=== PATIENT | female | born 1955 | race Caucasian/White ===

== ENCOUNTER → 2016-09-25 | Outpatient (CLI) | payer OTHER ==
[~2016-09-25] MED LIST: ALPR-411 PO; ASCA500 PO; CALC-393 PO; CALC600T9 PO; CALCTAB5 PO; CRAN1CAP15 PO; FLAX1CAP11 PO; FLAXOIL4 PO; LECI1200 PO; LISI-461 PO; LISI-789 PO; LSN5 PO; MARSHMALLOW ROOT PO; MILK140C PO; NRV/5 PO; PRED50TA PO; RANI300T2 PO; REDTAB PO; SPIR50TA PO; SUCR1TAB29 PO; VNTHFA/IN INH; ZNT/150 PO
== END | disposition home or self-care (01) ==
LOC: C.LABSPEC 11:11
PROVIDERS: ATTEND Family Medicine
DX: N39.0 Urinary tract infection, site not specified (principal)

== ENCOUNTER → 2016-10-15 | Outpatient (CLI) | payer OTHER | END | disposition home or self-care (01) | LOC: C.LABSPEC 11:24 | PROVIDERS: ATTEND Family Medicine | DX: N39.0 Urinary tract infection, site not specified (principal) ==

== ENCOUNTER 2016-10-19 10:53 | Emergency (ER) | payer OTHER ==
[~2016-10-19] VITALS: Ht 167.6 cm; Wt 113.6 kg
[~2016-10-19 10:53] MED LIST changes: -ASCA500 PO; -CALC-393 PO; -CALC600T9 PO; -CRAN1CAP15 PO; -FLAX1CAP11 PO; -LISI-461 PO; -LISI-789 PO; -LSN5 PO; -MARSHMALLOW ROOT PO; -NRV/5 PO; -PRED50TA PO; -RANI300T2 PO; -SPIR50TA PO; -VNTHFA/IN INH
[2016-10-19 11:04] VITALS: TEMP 37; Ht 167.6 cm; Wt 113.6 kg
[2016-10-19 11:10] VITALS: O2SAT 96
--- NOTE | 2016-10-19 11:30 | DIAGNOSTIC IMAGING REPORT ---
CHEST ONE VIEW PORTABLE CLINICAL HISTORY: Near Syncope COMPARISON STUDY: Chest radiograph February 15, 2016. FINDINGS: Lung volumes are normal. No consolidation is identified. There is no pneumothorax or pleural effusion. Scoliosis of the thoracolumbar spine is incidentally noted. Cardiomediastinal silhouette is stable. IMPRESSION: No acute cardiopulmonary findings. Electronically signed by: David Damon M.D. 10/19/2016 11:29 AM Dictated Date/Time: 10/19/2016 11:28 AM
[2016-10-19 11:48] LABS: MANUAL MICROSCOPIC REQUIRED? NO; URINE APPEARANCE CLEAR (CLEAR); URINE BILIRUBIN NEG (NEG); URINE COLOR YELLOW; URINE NITRITE NEG (NEG); URINE PH 6.5 (4.5-7.5); URINE SPECIFIC GRAVITY <= 1.005 (1.000-1.030); UROBILINOGEN NEG (NEG)
[2016-10-19 11:52] LABS: REVIEW REQ? NO
[2016-10-19 12:06] LABS: BASO % 2.9 %; BASO ABS # 0.17 K/uL (0-0.2); COMPLETE YES; EOS % 4.9 %; IG% 0.2 %; MEAN CELL VOLUME 85.8 fL (80-100); MEAN CORPUSCULAR HEMOGLOBIN 27.9 pg (25-34); MEAN CORPUSCULAR HGB CONC 32.5 g/dl (32-36); MEAN PLATELET VOLUME 11.2 fL (7.4-10.4); MONO % 6.6 %; NEUT % 46.4 %; PLATELET COUNT 227 K/uL (130-400); RED BLOOD COUNT 4.66 M/uL (4.2-5.4); WHITE BLOOD COUNT 5.89 K/uL (4.8-10.8)
[2016-10-19] MEDS ORDERED: CALC-393 PO (12:07)
[2016-10-19] MEDS ORDERED: NRV/5 PO (12:07)
[2016-10-19 12:15] LABS: ZZUR CULT IF INDIC CLEAN CATCH NO
--- NOTE | 2016-10-19 12:16 | EMERGENCY ROOM VISIT NOTE ---
History Report prepared by Eric: Yomaira Kendall Under the Supervision of: Dr. Terry Huitron M.D. First contact with patient: 12:04 Chief Complaint: DIZZY Stated Complaint: DIZZY Nursing Triage Summary: Patient reports getting dizzy around 10:10 this morning at [employer], dizziness persisted with lying sitting and standing. Patient reports being dizzy at this time. Patient states "This happened last thursday, thursday, thursday, and was seen by Dr Martínez and he changed my medications" Pateint reports "when I got dizzy i felt like I had to have a BM and thats directly related as I had loose stools thursday and thursday and then was constipated until this morning" History of Present Illness The patient is a 61 year old female who presents to the Emergency Room with complaints of multiple episodes of syncope occurring one week prior to arrival. The patient states that these episodes occur about 90 minutes after she has a bowel movement. During these episodes her blood pressure spikes and she becomes hypertension and becomes dizzy. The patient notes she recently was on Bactrim and had a reaction to it where she developed hives over her body and legions in her mouth. The patient also notes that the past few days she had very loose stool and is now experiencing constipation. Dr. Doss has done a scope on her with no abnormal findings. She denies a having a stress test done. Source of History: patient Onset: one week [employer] Position: other (global) Quality: other (syncope) Timing: other (episodes) Note: Patient is experiencing dizziness, hypertension and constipation. Review of Systems See HPI for pertinent positives & negatives. A total of 10 systems reviewed and were otherwise negative. Past Medical & Surgical Medical Problems: (1) Anxiety (2) Esophageal Reflux (3) Esophageal Stricture (4) Foreign Body Esophagus (5) Hypertension Nos (6) Panic disorder (7) Urin Tract Infection Nos (8) Vasovagal attack Family History Patient reports no known family medical history. Social History Smoking Status: Former Smoker Alcohol Use: none Drug Use: none Marital Status: Occupation Status: employed Current/Historical Medications Scheduled Amlodipine Besylate (Amlodipine Besylate), 5 MG PO DAILY Calcium Carbonate (Calcium), 600 MG PO BID Flaxseed (Linseed) (Flax Seed Oil), 1 TBS PO QAM Lecithin (Lecithin), 1,200 MG PO QAM Lisinopril (Lisinopril), 10 MG PO DAILY Milk Thistle (Silybum Marianum (Milk Thistle), 1 CAP PO BID Ranitidine Hcl (Zantac), 300 MG PO BID Red [place] Extract (Promensil), 500 MG PO QAM Sucralfate (Carafate), 1 GM PO ACHS Scheduled PRN Alprazolam (Xanax), 0.5 MG PO BID PRN for Anxiety Allergies Coded Allergies: Erythromycin (Unverified Allergy, Mild, UNKNOWN, 02/15/16) Macrolides (Unverified Allergy, Mild, 02/15/16) Sulfa Drugs (Unverified Allergy, Mild, 02/15/16) Loracarbef (Unverified Allergy, Unknown, UNKNOWN, 02/15/16) Sulfamethoxazole w/Trimethoprim (Verified Allergy, Unknown, fever,joint pain,rash,hives, 10/19/16) Physical Exam Vital Signs Date Time Temp Pulse Resp B/P Pulse Ox O2 Delivery O2 Flow Rate FiO2 10/19/16 15:20 70 18 188/88 97 10/19/16 14:56 70 18 188/88 97 Room Air 10/19/16 13:55 74 17 171/75 96 Room Air 10/19/16 12:26 71 180/84 96 Room Air 75 179/83 77 196/99 10/19/16 11:10 96 Room Air 10/19/16 11:07 74 10/19/16 11:04 37.0 71 18 185/100 97 Room Air Physical Exam GENERAL: Patient is a healthy-appearing well-nourished HEAD: Normocephalic atraumatic EYES: Ocular movements intact pupils equal and react to light OROPHARYNX mucous membranes are moist no exudates present no erythema or edema present NECK: Supple no nuchal rigidity CHEST: Good equal expansion LUNGS: Clear and equal to auscultation CARDIAC: Normal S1 and S2 ABDOMEN: Soft nontender no guarding BACK: No CVA tenderness EXTREMITIES: No pain upon palpation normal muscle strength in all groups no clubbing cyanosis or edema NEURO: Patient is following commands is answering questions appropriately. Alert and oriented x3 Cranial Nerves 2-12 grossly intact Medical Decision & Procedures ER Provider Diagnostic Interpretation: X-ray results as stated below per my interpretation and radiologist interpretation. Other radiology results as stated below per my review and radiologist interpretation: CHEST ONE VIEW PORTABLE CLINICAL HISTORY: Near Syncope COMPARISON STUDY: Chest radiograph February 15, 2016. FINDINGS: Lung volumes are normal. No consolidation is identified. There is no pneumothorax or pleural effusion. Scoliosis of the thoracolumbar spine is incidentally noted. Cardiomediastinal silhouette is stable. IMPRESSION: No acute cardiopulmonary findings. Electronically signed by: David Damon M.D. 10/19/2016 11:29 AM Dictated Date/Time: 10/19/2016 11:[address] OF THE HEAD WITHOUT CONTRAST CLINICAL HISTORY: Hypotension. Multiple syncopal episodes. COMPARISON STUDY: Head CT February 15, 2016. CT DOSE: 537.48 mGy.cm TECHNIQUE: Helical axial images of the head were obtained without IV contrast. Automated exposure control was utilized for the study. FINDINGS: No acute intracranial hemorrhage, midline shift or mass effect is present. Ventricular system is normal. Basilar cisterns are patent. There are no extra-axial collections. There are no findings to suggest acute dural sinus thrombosis or acute territorial infarct. There is mild mucosal thickening of the ethmoid sinuses. Mastoid air cells are clear. There are no calvarial fractures. IMPRESSION: No acute intracranial findings. Electronically signed by: David Damon M.D. 10/19/2016 1:41 PM Dictated Date/Time: 10/19/2016 1:39 PM Laboratory Results 10/19/16 11:08 Red Blood Count 4.66, Mean Corpuscular Volume 85.8, Mean Corpuscular Hemoglobin 27.9, Mean Corpuscular Hemoglobin Concent 32.5, Mean Platelet Volume 11.2, Neutrophils (%) (Auto) 46.4, Lymphocytes (%) (Auto) 39.0, Monocytes (%) (Auto) 6.6, Eosinophils (%) (Auto) 4.9, Basophils (%) (Auto) 2.9, Neutrophils # (Auto) 2.73, Lymphocytes # (Auto) 2.30, Monocytes # (Auto) 0.39, Eosinophils # (Auto) 0.29, Basophils # (Auto) 0.17 10/19/16 11:08 Test 10/19/16 11:00 10/19/16 11:08 10/19/16 11:26 Urine Color YELLOW Urine Appearance CLEAR (CLEAR) Urine pH 6.5 (4.5-7.5) Urine Specific [place] <= 1.005 (1.000-1.030) Urine Protein NEG (NEG) Urine Glucose (UA) NEG (NEG) Urine Ketones NEG (NEG) Urine Occult Blood NEG (NEG) Urine Nitrite NEG (NEG) Urine Bilirubin NEG (NEG) Urine Urobilinogen NEG (NEG) Urine Leukocyte Esterase NEG (NEG) White Blood Count 5.89 K/uL (4.8-10.8) Red Blood Count 4.66 M/uL (4.2-5.4) Hemoglobin 13.0 g/dL (12.0-16.0) Hematocrit 40.0 % (37-47) Mean Corpuscular Volume 85.8 fL (80-100) Mean Corpuscular Hemoglobin 27.9 pg (25-34) Mean Corpuscular Hemoglobin Concent 32.5 g/dl (32-36) Platelet Count 227 K/uL (130-400) Mean Platelet Volume 11.2 fL (7.4-10.4) Neutrophils (%) (Auto) 46.4 % Lymphocytes (%) (Auto) 39.0 % Monocytes (%) (Auto) 6.6 % Eosinophils (%) (Auto) 4.9 % Basophils (%) (Auto) 2.9 % Neutrophils # (Auto) 2.73 K/uL (1.4-6.5) Lymphocytes # (Auto) 2.30 K/uL (1.2-3.4) Monocytes # (Auto) 0.39 K/uL (0.11-0.59) Eosinophils # (Auto) 0.29 K/uL (0-0.5) Basophils # (Auto) 0.17 K/uL (0-0.2) RDW Standard Deviation 44.7 fL (36.4-46.3) RDW Coefficient of Variation 14.3 % (11.5-14.5) Immature Granulocyte % (Auto) 0.2 % Immature Granulocyte # (Auto) 0.01 K/uL (0.00-0.02) Anion Gap 10.0 mmol/L (3-11) Est Creatinine Clear Calc Drug Dose 86.6 ml/min Estimated GFR () 84.5 Estimated GFR (Non- 72.9 BUN/Creatinine Ratio 10.7 (10-20) Calcium Level 9.1 mg/dl (8.5-10.1) Total Bilirubin 0.3 mg/dl (0.2-1) Aspartate Amino Transf (AST/SGOT) 19 U/L (15-37) Alanine Aminotransferase (ALT/SGPT) 43 U/L (12-78) Alkaline Phosphatase 87 U/L (45-117) Total Creatine Kinase 94 U/L (26-192) Creatine Kinase MB 1.8 ng/ml (0.5-3.6) Creatine Kinase MB Ratio 1.9 (0-3.0) Total Protein 7.9 gm/dl (6.4-8.2) Albumin 3.4 gm/dl (3.4-5.0) Globulin 4.5 gm/dl (2.5-4.0) Albumin/Globulin Ratio 0.8 (0.9-2) Thyroid Stimulating Hormone (TSH) 1.150 uIu/ml (0.300-4.500) Bedside Troponin I 0.010 ng/ml (0-0.045) Labs reviewed by ED physician. Medications Administered Medications (Trade) Dose Ordered Sig/Haja Route Start Time Stop Time Status Last Admin Dose Admin Lisinopril (Zestril Tab) 10 mg NOW STAT PO 10/19/16 12:54 10/19/16 12:56 DC 10/19/16 13:11 10 MG ECG Indication: other (dizziness) Rate (beats per minute): 71 Rhythm: normal sinus Findings: no acute ischemic change, no ectopy ED Course 1210: Past medical records reviewed. The patient was evaluated in room C9. A complete history and physical examination was performed. 1249: I reevaluated the patient. 1254: Zestril Tab 10 mg PO. 1435: Upon reexamination the patient is hemodynamically stable. I discussed results and treatment plan with the patient. She verbalizes agreement and understanding. The patient is ready for discharge. Medical Decision The patient is a 61 year old female who presents to the ED with complaints of dizziness. Differential diagnosis: Etiologies such as benign hypertension, hypertensive emergency, cardiovascular pathology, pheochromocytoma, electrolyte abnormality, renal disease, endorgan damage, as well as others were entertained. This is a 61-year-old female who presents emergency department complaining of spikes in her blood pressure causing her to pass out. The patient is also feeling dizzy at this point. Her blood pressure is elevated. Primary care physician recently changed her blood pressure medication. I believe be reasonable to place patient on lisinopril. Repeat examination revealed much improvement the patient's symptoms. I do believe the patient as well as to be discharged home with a trial medication of lisinopril. Patient was in agreement with the treatment plan. Impression Primary Impression: Hypertension Scribe Attestation The scribe's documentation has been prepared under my direction and personally reviewed by me in its entirety. I confirm that the note above accurately reflects all work, treatment, procedures, and medical decision making performed by me. Departure Information Dispostion Home / Self-Care Prescriptions Lisinopril (Lisinopril) 10 Mg Tab 10 MG PO DAILY for 10 Days, #10 TAB Prov: Terry Huitron MD 10/19/16 Referrals Linus Orona M.D. (PCP) Forms HOME CARE DOCUMENTATION FORM, IMPORTANT VISIT INFORMATION, School Instructions, Work Instructions Patient Instructions ED Hypertension Poss, My [facility] Additional Instructions You have been examined and treated today on an emergency basis only. This is not a substitute for, or an effort to provide, complete comprehensive medical care. It is impossible to recognize and treat all injuries or illnesses in a single emergency department visit. It is therefore important that you follow up closely with Dr Orona. Call as soon as possible for an appointment. Thank you for your time and consideration. I look forward to speaking with you again soon. Please don't hesitate to call us if you have any questions. Problem Qualifiers Primary Impression: Hypertension Hypertension type: essential hypertension Qualified Codes: I10 - Essential ( primary) hypertension
[2016-10-19 12:22] LABS: BUN/CREATININE RATIO 10.7 (10-20); CALCIUM 9.1 mg/dl (8.5-10.1); CREATININE 0.85 mg/dl (0.60-1.20); POTASSIUM 3.9 mmol/L (3.5-5.1)
[2016-10-19 12:32] LABS: ALB/GLOB RATIO 0.8 (0.9-2); CKMB/CK RATIO 1.9 (0-3.0); THYROID STIMULATING HORMONE 1.15 uIu/ml (0.300-4.500)
[2016-10-19] MEDS ORDERED: LISINOPRIL 10 MG TAB PO STA (12:54)
--- NOTE | 2016-10-19 13:42 | DIAGNOSTIC IMAGING REPORT ---
CT OF THE HEAD WITHOUT CONTRAST CLINICAL HISTORY: Hypotension. Multiple syncopal episodes. COMPARISON STUDY: Head CT February 15, 2016. CT DOSE: 537.48 mGy.cm TECHNIQUE: Helical axial images of the head were obtained without IV contrast. Automated exposure control was utilized for the study. FINDINGS: No acute intracranial hemorrhage, midline shift or mass effect is present. Ventricular system is normal. Basilar cisterns are patent. There are no extra-axial collections. There are no findings to suggest acute dural sinus thrombosis or acute territorial infarct. There is mild mucosal thickening of the ethmoid sinuses. Mastoid air cells are clear. There are no calvarial fractures. IMPRESSION: No acute intracranial findings. Electronically signed by: David Damon M.D. 10/19/2016 1:41 PM Dictated Date/Time: 10/19/2016 1:39 PM
[2016-10-19] MEDS ORDERED: LISI-461 PO (14:34)
[2016-10-19 15:20] VITALS: BP 188/88; PULSE 70; O2SAT 97
[2016-12-04] MEDS ORDERED: LISI-789 PO (14:02)
[2016-12-04] MEDS ORDERED: MARSHMALLOW ROOT PO (14:02)
[2016-12-04] MEDS ORDERED: RANI300T2 PO (14:02)
[2016-12-04] MEDS ORDERED: SPIR50TA PO (14:02)
== END 2016-10-19 15:21 | disposition home or self-care (01) ==
LOC: EDBD 10:53 → C.EDC 10:55
DX: I10 Essential (primary) hypertension (principal); F41.9 Anxiety disorder, unspecified; K21.9 Gastro-esophageal reflux disease without esophagitis; K22.2 Esophageal obstruction; Z87.891 Personal history of nicotine dependence; Z79.899 Other long term (current) drug therapy

== ENCOUNTER → 2016-12-03 | Outpatient (CLI) | payer OTHER ==
[~2016-12-03] MED LIST changes: +ASCA500 PO; +CALC-393 PO; +CALC600T9 PO; -CALCTAB5 PO; +CRAN1CAP15 PO; +FLAX1CAP11 PO; +LISI-461 PO; +LISI-789 PO; +LSN5 PO; +MARSHMALLOW ROOT PO; +NRV/5 PO; +PRED50TA PO; +RANI300T2 PO; +SPIR50TA PO; +VNTHFA/IN INH
[2016-12-06 01:43] LABS: CRYPTOSPORIDIUM AG TC 37213 NOT DETECTED (NOT DETECTED); O&P GIARDIA AG NOT DETECTED (NOT DETECTED)
== END | disposition home or self-care (01) ==
LOC: C.LAB 15:58
PROVIDERS: ATTEND Family Medicine
DX: R19.7 Diarrhea, unspecified (principal)

== ENCOUNTER → 2016-12-16 | Outpatient (CLI) | payer OTHER ==
[~2016-12-16] MED LIST changes: -FLAXOIL4 PO; -LISI-461 PO; -NRV/5 PO; -ZNT/150 PO
--- NOTE | 2016-12-16 12:34 | DIAGNOSTIC IMAGING REPORT ---
ABDOMINAL ULTRASOUND COMPLETE HISTORY: Pain. Nausea. 05/11/2015. COMPARISON: 05/11/2015 FINDINGS: Pancreas: Limited visibility due to overlying bowel content Liver: Fatty infiltration. Several small cysts. Gallbladder: No gallbladder wall thickening. No gallstones. CBD: 4 mm Kidneys: 2.3 cm left renal cyst. Otherwise negative kidneys. Spleen: Normal in size. Aorta: Normal in caliber. IVC: Patent. IMPRESSION: Several small left renal as well as hepatic cysts. Mild fatty infiltration of liver. Otherwise negative study Electronically signed by: Beltran Bender M.D. 12/16/2016 12:31 PM Dictated Date/Time: 12/16/2016 12:27 PM
== END | disposition home or self-care (01) ==
LOC: C.ULTR 11:32
PROVIDERS: ATTEND Family Medicine
DX: R10.9 Unspecified abdominal pain (principal); R11.2 Nausea with vomiting, unspecified; N28.1 Cyst of kidney, acquired; K76.89 Other specified diseases of liver

== ENCOUNTER → 2016-12-17 | Day surgery (SDC) | payer OTHER ==
[2016-12-04 14:06] VITALS: BMI 39.0
[~2016-12-17] VITALS: Ht 167.6 cm; Wt 109.1 kg
[~2016-12-17] MED LIST changes: +LIDOCAINE HCL 2% 2 ML VIAL (20MG/ML) ONE; +PROPOFOL IV EMULSION 10 MG/ML 20 ML VIAL IV ONE; +SODIUM CHLORIDE 0.9% 500ML 500 ML IV ONE
[2016-12-17 10:50] VITALS: Ht 167.6 cm; Wt 109.1 kg
--- NOTE | 2016-12-17 10:59 | Endo History and Physical ---
History & Physical Date of Service: Dec 17, 2016. Chief Complaint: vomiting, Hx Schatzki ring Referring Physician: Dr. Orona History of Present Illness 61 yo CF who presents for EGD secondary to Schatzki's ring and vomiting. Past Medical History Arthritis, Gastrointestinal Disorder, Anxiety, Reflux, Cancer, Syncopal Episodes Past Surgical History Hx Cardiac Surgery: No Hx Internal Defibrillator: No Hx Pacemaker: No Hx Abdominal Surgery: No Hx Post-Op Nausea and Vomiting: No Hx Cancer Surgery: Yes (CONE BX FOR CERVICAL CA) Hx Thoracic Surgery: No Hx Orthopedic: No Hx Urinary Tract Surgery: No Family History Colon CA Social History Smoking Status: Former Smoker Hx Substance Use: No Hx Alcohol Use: No Allergies Coded Allergies: Sulfa Antibiotics (Verified Allergy, Unknown, MULTIPLE STOMACH PROBLEMS, MOUTH LESIONS, 12/04/16) Current Medications Reported Home Medications Medications Dose Route/Sig Max Daily Dose Days Date Category Zantac (Ranitidine HCl) 300 Mg Tab 1-2 Tab PO BID PRN 12/04/16 Reported [Marshmallow Root] 1 Dose PO DIRECTED 12/04/16 Reported Aldactazide 25MG/25MG (HCTZ/Spironolactone) 1 Tab Tab 1 Tab PO QAM 12/04/16 Reported Zestril (Lisinopril) 2.5 Mg Tab 1 Tab PO HS 12/04/16 Reported Calcium (Calcium Carbonate) 600 Mg Tab 600 Mg PO BID 10/19/16 Reported Milk Thistle (Milk Thistle (Silybum Marianum) Unknown Strength Cap 1 Cap PO BID 09/26/15 Reported Promensil ([place] Extract) 500 Mg Tab 500 Mg PO QAM 09/26/15 Reported Xanax (Alprazolam) 0.5 Mg Tab 0.5 Mg PO BID PRN 09/26/15 Reported Carafate (Sucralfate) 1 Gm Tab 1 Gm PO ACHS 09/26/15 Reported Lecithin 1,200 Mg Cap 1,200 Mg PO QAM 09/17/14 Reported Vital Signs Weight (Kilograms): 109.09 Height (Feet): 5 Height (Inches): 6 Date Time Temp Pulse Resp B/P Pulse Ox O2 Delivery O2 Flow Rate FiO2 12/17/16 10:56 36.9 70 20 151/79 95 Room Air Physical Exam General Appearance: WD/WN, no apparent distress Respiratory/Chest: Auscultation: breath sounds normal Cardiovascular: Heart Auscultation: RRR Abdomen: Bowel Sounds: normal Inspection & Palpation: soft, non-distended, no tenderness, guarding & rebound Assessment and Plan Assessment: 61 yo CF who presents for EGD secondary to Schatzki's ring and vomiting. Plan: Proceed with EGD.
--- NOTE | 2016-12-17 11:31 | Discharge Instructions ---
Endoscopy Patient Instructions Date / Procedure(s) Performed Dec 17, 2016. EGD Allergy Information Coded Allergies: Sulfa Antibiotics (Verified Allergy, Unknown, MULTIPLE STOMACH PROBLEMS, MOUTH LESIONS, 12/04/16) Discharge Date / Findings Dec 17, 2016. Schatzki's Ring s/p dilation Hiatal hernia Medication Instructions OK to resume all medications today as prescribed Reported Home Medications Medications Dose Route/Sig Max Daily Dose Days Date Category Zantac (Ranitidine HCl) 300 Mg Tab 1-2 Tab PO BID PRN 12/04/16 Reported [Marshmallow Root] 1 Dose PO DIRECTED 12/04/16 Reported Aldactazide 25MG/25MG (HCTZ/Spironolactone) 1 Tab Tab 1 Tab PO QAM 12/04/16 Reported Zestril (Lisinopril) 2.5 Mg Tab 1 Tab PO HS 12/04/16 Reported Calcium (Calcium Carbonate) 600 Mg Tab 600 Mg PO BID 10/19/16 Reported Milk Thistle (Milk Thistle (Silybum Marianum) Unknown Strength Cap 1 Cap PO BID 09/26/15 Reported Promensil (Red [place] Extract) 500 Mg Tab 500 Mg PO QAM 09/26/15 Reported Xanax (Alprazolam) 0.5 Mg Tab 0.5 Mg PO BID PRN 09/26/15 Reported Carafate (Sucralfate) 1 Gm Tab 1 Gm PO ACHS 09/26/15 Reported Lecithin 1,200 Mg Cap 1,200 Mg PO QAM 09/17/14 Reported Provider Instructions Activity Restrictions - No exercising or heavy lifting for 24 hours. - Do not drink alcohol the day of the procedure. - Do not drive a car or operate machinery until the day after the procedure. - Do not make any important decisions or sign important papers in 24 hours after the procedure. Following Day: - Return to full activity which may include returning to work/school. Diet Start your diet with liquids and light foods (jello, soup, juice, toast). Then eat your usual diet if not nauseated. Treatment For Common After Affects For mild abdominal pain, bloating, or excessive gas: - Rest - Eat lightly - Lie on right side Follow-Up Information Follow-up with Dr. Orona as scheduled Anesthesia Information What You Should Know You have had a procedure that required some medicine to reduce anxiety and discomfort. This treatment is called moderate sedation. After receiving the treatment, you may be sleepy, but you will be able to breathe on your own. The effects of the treatment may last for several hours. Follow these instructions along with Activity/Diet recommendations noted above: * Do NOT do anything where dizziness or clumsiness would be dangerous. * Rest quietly at home today, then you can be up and about tomorrow. * Have a responsible person stay with you the rest of today. * You may have had an I.V. today. If so, you may take the dressing off later today. Recommendations Call your doctor if: * Trouble breathing * Continuous vomiting for more than 24 hours * Temperature above 101 degrees * Severe abdominal pain or bloating * Pain not relieved by pain medicine ordered * There is increased drainage or redness from any incision * A large amount of rectal bleeding greater than 2-3 tablespoons. (If you had a polyp/s removed or have hemorrhoids, a small amount of blood - from the rectum is to be expected.) * You have any unanswered questions or concerns. IN THE EVENT OF A SERIOUS EMERGENCY, GO TO THE NEAREST EMERGENCY ROOM Your discharge instructions were prepared by provider Mamadou Doss. Patient Instructions Signature Page Anabel Carver Patient (or Guardian) Signature/Date: I have read and understand the instructions given to me by my caregivers. Caregiver/RN/Doctor Signature/Date: The above-named patient and/or guardian has received patient instructions on this date. + Original Patient Signature Page (only) stays with chart. Please make copy for patient.
--- NOTE | 2016-12-17 11:35 | GI REPORT ---
Procedure Date: 12/17/2016 11:04 AM Procedure: Upper GI endoscopy Indications: Dysphagia Medicines: Monitored Anesthesia Care Complications: No immediate complications. Estimated Blood Loss: Estimated blood loss: none. Procedure: Pre-Anesthesia Assessment: - Prior to the procedure, a History and Physical was performed, and patient medications and allergies were reviewed. The patient's tolerance of previous anesthesia was also reviewed. The risks and benefits of the procedure and the sedation options and risks were discussed with the patient. All questions were answered, and informed consent was obtained. Prior Anticoagulants: The patient has taken no previous anticoagulant or antiplatelet agents. ASA Grade Assessment: II - A patient with mild systemic disease. After reviewing the risks and benefits, the patient was deemed in satisfactory condition to undergo the procedure. After obtaining informed consent, the endoscope was passed under direct vision. Throughout the procedure, the patient's blood pressure, pulse, and oxygen saturations were monitored continuously. The scope was introduced through the mouth, and advanced to the second part of duodenum. The upper GI endoscopy was accomplished without difficulty. The patient tolerated the procedure well. Findings: LA Grade C (one or more mucosal breaks continuous between tops of 2 or more mucosal folds, less than 75% circumference) esophagitis with no bleeding was found. A moderate Schatzki ring (acquired) was found at the gastroesophageal junction. A TTS dilator was passed through the scope. Dilation with an 18-19-20 mm balloon (to a maximum balloon size of 18 mm) dilator was performed. The dilation site was examined and showed moderate improvement in luminal narrowing. A medium-sized hiatus hernia was present. The examined duodenum was normal. Impression: - LA Grade C reflux esophagitis. - Moderate Schatzki ring. Dilated. - Medium-sized hiatus hernia. - Normal examined duodenum. - No specimens collected. Recommendation: - Resume previous diet. - Continue present medications. - Repeat the upper endoscopy PRN for retreatment. - Return to primary care physician as previously scheduled. Mamadou Doss DO 12/17/2016 11:35:02 AM This report has been signed electronically. Note Initiated On: 12/17/2016 11:04 AM I attest to the content of the Intraoperative Record and orders documented therein, exceptions below
[2016-12-17 11:51] VITALS: BP 156/77; PULSE 62; O2SAT 98
--- NOTE | 2016-12-17 14:46 | Anesthesiology Progress Note ---
Anesthesia Post Op Note Date & Time Dec 17, 2016 at 14:45 Vital Signs Pain Intensity: 0 Vital Signs Past 12 Hours Date Time Temp Pulse Resp B/P Pulse Ox O2 Delivery O2 Flow Rate FiO2 12/17/16 11:51 62 20 156/77 98 Room Air 12/17/16 11:39 56 20 116/64 99 Room Air 12/17/16 11:26 70 20 103/51 100 Room Air 12/17/16 10:56 36.9 70 20 151/79 95 Room Air Notes Mental Status: alert / awake / arousable, participated in evaluation Pt Amnestic to Procedure: Yes Nausea / Vomiting: adequately controlled Pain: adequately controlled Airway Patency, RR, SpO2: stable & adequate BP & HR: stable & adequate Hydration State: stable & adequate Anesthetic Complications: no major complications apparent
== END | disposition home or self-care (01) ==
LOC: C.GI 10:24
PROVIDERS: ATTEND Internal Medicine
DX: R13.10 Dysphagia, unspecified (principal); K22.2 Esophageal obstruction; K44.9 Diaphragmatic hernia without obstruction or gangrene; K21.0 Gastro-esophageal reflux disease with esophagitis; Z87.891 Personal history of nicotine dependence

== ENCOUNTER 2017-01-05 01:54 | Emergency (ER) | payer OTHER ==
[~2017-01-05] VITALS: Ht 167.6 cm; Wt 112.4 kg
[~2017-01-05 01:54] MED LIST changes: -ASCA500 PO; -CALC600T9 PO; -CRAN1CAP15 PO; -FLAX1CAP11 PO; -LIDOCAINE HCL 2% 2 ML VIAL (20MG/ML) ONE; -LSN5 PO; -PRED50TA PO; -PROPOFOL IV EMULSION 10 MG/ML 20 ML VIAL IV ONE; -SODIUM CHLORIDE 0.9% 500ML 500 ML IV ONE; -VNTHFA/IN INH
[2017-01-05 01:56] VITALS: Ht 167.6 cm; Wt 112.4 kg
[2017-01-05] MEDS ORDERED: ALBUT/IPRATROP 3MG/0.5MG NEB 3 ML VIAL INH ONE (02:15)
[2017-01-05] MEDS ORDERED: LSN5 PO (02:15)
[2017-01-05] MEDS ORDERED: SODIUM CHLORIDE 0.9% 1000ML 1,000 ML IV ONE (02:15)
[2017-01-05 02:17] VITALS: PULSE 80; O2SAT 97
[2017-01-05] MEDS ORDERED: CALC600T9 PO (02:18)
[2017-01-05] MEDS ORDERED: CRAN1CAP15 PO (02:22)
[2017-01-05] MEDS ORDERED: MILK140C PO (02:22)
[2017-01-05] MEDS ORDERED: ASCA500 PO (02:22)
[2017-01-05] MEDS ORDERED: FLAX1CAP11 PO (02:22)
[2017-01-05 02:46] LABS: BASO % 0.3 %; BASO ABS # 0.03 K/uL (0-0.2); COMPLETE YES; EOS % 4.3 %; HEMATOCRIT 37.4 % (37-47); IG% 0.2 %; LYMPH ABS # 2.25 K/uL (1.2-3.4); MEAN CELL VOLUME 87.2 fL (80-100); MEAN CORPUSCULAR HEMOGLOBIN 29.1 pg (25-34); MEAN CORPUSCULAR HGB CONC 33.4 g/dl (32-36); MEAN PLATELET VOLUME 10.7 fL (7.4-10.4); MONO % 6.6 %; NEUT % 65.6 %; PLATELET COUNT 227 K/uL (130-400); RED BLOOD COUNT 4.29 M/uL (4.2-5.4); WHITE BLOOD COUNT 9.79 K/uL (4.8-10.8)
[2017-01-05 03:06] LABS: POINT OF CARE PRO-BNP 114 pg/ml (0-900)
[2017-01-05 03:10] LABS: ALB/GLOB RATIO 0.8 (0.9-2); BUN/CREATININE RATIO 23.1 (10-20); CALCIUM 8.8 mg/dl (8.5-10.1); CREATININE 0.92 mg/dl (0.60-1.20); POTASSIUM 3.7 mmol/L (3.5-5.1); THYROID STIMULATING HORMONE 1.45 uIu/ml (0.300-4.500)
[2017-01-05] MEDS ORDERED: OPTIRAY 320 IV PRN (03:15)
[2017-01-05] MEDS ORDERED: VNTHFA/IN INH (04:32)
[2017-01-05] MEDS ORDERED: PRED50TA PO (04:32)
[2017-01-05 05:00] VITALS: BP 135/67; PULSE 94; O2SAT 94
--- NOTE | 2017-01-05 05:34 | EMERGENCY ROOM VISIT NOTE ---
History First contact with patient: :56 Chief Complaint: COUGH Stated Complaint: COUGH Nursing Triage Summary: pt arrived via ambulance. Pt stated she started coughing around 1999. At 2300 developed SOB. History of Present Illness The patient is a 61 year old female who presents to the Emergency Room with complaints of cough symptoms for the past 3 hours. Patient states that she was mowing her grass earlier today and EMS reports that she has several cats at home. The patient states that she developed a very mild cough about 6 hours ago , however 3 hours ago the cough caused her to feel like she might be short of breath. The cough is dry in nature. He does not have chest pain, neck pain, arm pain, or abdominal pain with this. She does take lisinopril, and reportedly has some element of coughing while on lisinopril. The patient has not had fever or chills. She is without additional symptoms. Review of Systems More than 10 systems were reviewed and otherwise negative with the exception of history of present illness. Past Medical/Surgical History Medical Problems: (1) Anxiety (2) Esophageal Reflux (3) Esophageal Stricture (4) Foreign Body Esophagus (5) Hypertension Nos (6) Panic disorder (7) Urin Tract Infection Nos (8) Vasovagal attack Family History Patient reports no known family medical history. No pertinent family history Social History Smoking Status: Never Smoker Alcohol Use: none Drug Use: none Marital Status: Occupation Status: employed Current/Historical Medications Scheduled Albuterol Hfa (Ventolin Hfa), 2 PUFFS INH QID Ascorbic Acid (Vitamin C), 500 MG PO TID Calcium Carbonate-Vitamin D (Calcium + D), 1 TAB PO BID Cranberry-Vitamin C-Vitamin E (Cranberry), 1 DOSE PO UD Flaxseed (Linseed) (Flax Seed Oil), 2,400 MG PO DAILY Hctz/Spironolactone 25MG/25MG (Aldactazide 25MG/25MG), 1 TAB PO QAM Lisinopril (Lisinopril), 5 MG PO DAILY Milk Thistle (Silybum Marianum (Milk Thistle), 1 CAP PO DAILY Prednisone (Prednisone), 50 MG PO DAILY Ranitidine (Zantac), 300 MG PO BID Sucralfate (Carafate), 1 GM PO ACHS Allergies Coded Allergies: Sulfa Antibiotics (Verified Allergy, Unknown, MULTIPLE STOMACH PROBLEMS, MOUTH LESIONS, 12/04/16) Physical Exam Vital Signs Date Time Temp Pulse Resp B/P Pulse Ox O2 Delivery O2 Flow Rate FiO2 01/05/17 05:00 94 18 135/67 94 01/05/17 04:50 94 18 135/67 94 Room Air 01/05/17 03:37 106 18 157/64 95 Room Air 01/05/17 02:17 80 14 97 Room Air 01/05/17 02:01 98 Room Air 01/05/17 01:56 36.8 76 20 164/86 98 Room Air Pain Rating (0-10): 0 Physical Exam VITALS: Vitals are noted on the nurse's note and reviewed by myself. Vital signs stable. GENERAL: Well-developed, well-nourished, white female, who is in no acute distress and resting comfortably. Patient is cooperative with the examination. HEAD: Normocephalic atraumatic. EARS: External ear normal. External auditory canals clear, tympanic membranes pearly scherer without erythema or effusion bilaterally. EYES: Pupils equal round and reactive to light and accommodation. Conjunctivae without injection, sclerae without icterus. Extraocular movements intact. NOSE: Patent, turbinates without inflammation or discharge. MOUTH: Mucous membranes moist. Tonsils are not enlarged. Pharynx without erythema, blood, or exudate. Uvula midline. Airway patent. NECK: Supple without nuchal rigidity. No lymphadenopathy. No thyromegaly. Cervical spine is nontender. HEART: Regular rate and rhythm without murmurs gallops or rubs. LUNGS: Mild wheezing without rhonchi or rales Medical Decision & Procedures ER Provider Diagnostic Interpretation: Preliminary Findings Only See Final Report For Complete Findings CTA CHEST: Main pulmonary artery is normal in caliber. There is no evidence of acute pulmonary embolism. There is no right heart strain. There is a thyroid goiter. There is mild ascending thoracic aortic aneurysm measuring 4 cm. There is mild cardiomegaly without pericardial effusion. There is a small hiatal hernia. There is no adenopathy by size criteria. There is no airspace consolidation, pleural effusion, or pneumothorax. There is mild centrilobular emphysema. Visualized upper abdomen demonstrates hepatic cysts. There is S-shaped thoracolumbar scoliosis without evidence of acute osseous abnormality. Laboratory Results 01/05/17 02:25 Red Blood Count 4.29, Mean Corpuscular Volume 87.2, Mean Corpuscular Hemoglobin 29.1, Mean Corpuscular Hemoglobin Concent 33.4, Mean Platelet Volume 10.7, Neutrophils (%) (Auto) 65.6, Lymphocytes (%) (Auto) 23.0, Monocytes (%) (Auto) 6.6, Eosinophils (%) (Auto) 4.3, Basophils (%) (Auto) 0.3, Neutrophils # (Auto) 6.42, Lymphocytes # (Auto) 2.25, Monocytes # (Auto) 0.65, Eosinophils # (Auto) 0.42, Basophils # (Auto) 0.03 01/05/17 02:25 Test 01/05/17 02:25 01/05/17 02:42 White Blood Count 9.79 K/uL (4.8-10.8) Red Blood Count 4.29 M/uL (4.2-5.4) Hemoglobin 12.5 g/dL (12.0-16.0) Hematocrit 37.4 % (37-47) Mean Corpuscular Volume 87.2 fL (80-100) Mean Corpuscular Hemoglobin 29.1 pg (25-34) Mean Corpuscular Hemoglobin Concent 33.4 g/dl (32-36) Platelet Count 227 K/uL (130-400) Mean Platelet Volume 10.7 fL (7.4-10.4) Neutrophils (%) (Auto) 65.6 % Lymphocytes (%) (Auto) 23.0 % Monocytes (%) (Auto) 6.6 % Eosinophils (%) (Auto) 4.3 % Basophils (%) (Auto) 0.3 % Neutrophils # (Auto) 6.42 K/uL (1.4-6.5) Lymphocytes # (Auto) 2.25 K/uL (1.2-3.4) Monocytes # (Auto) 0.65 K/uL (0.11-0.59) Eosinophils # (Auto) 0.42 K/uL (0-0.5) Basophils # (Auto) 0.03 K/uL (0-0.2) RDW Standard Deviation 44.7 fL (36.4-46.3) RDW Coefficient of Variation 14.2 % (11.5-14.5) Immature Granulocyte % (Auto) 0.2 % Immature Granulocyte # (Auto) 0.02 K/uL (0.00-0.02) Nucleated RBC Absolute Count (auto) 0.00 K/uL (0-0) Nucleated Red Blood Cells % 0.0 % D-Dimer 610 ug/L FEU (0-500) Anion Gap 7.0 mmol/L (3-11) Est Creatinine Clear Calc Drug Dose 79.6 ml/min Estimated GFR () 76.8 Estimated GFR (Non- 66.3 BUN/Creatinine Ratio 23.1 (10-20) Calcium Level 8.8 mg/dl (8.5-10.1) Total Bilirubin 0.3 mg/dl (0.2-1) Aspartate Amino Transf (AST/SGOT) 16 U/L (15-37) Alanine Aminotransferase (ALT/SGPT) 25 U/L (12-78) Alkaline Phosphatase 90 U/L (45-117) Troponin I 0.043 ng/ml (0-0.045) Total Protein 8.1 gm/dl (6.4-8.2) Albumin 3.5 gm/dl (3.4-5.0) Globulin 4.6 gm/dl (2.5-4.0) Albumin/Globulin Ratio 0.8 (0.9-2) Thyroid Stimulating Hormone (TSH) 1.450 uIu/ml (0.300-4.500) Chemistry Specimen Hemolysis Bedside D-Dimer > 450 ng/mlFEU (0-450) Bedside Troponin I 0.030 ng/ml (0-0.045) SF-Rfx-Q-Type Natriuretic Peptide 114 pg/ml (0-900) Medications Administered Medications (Trade) Dose Ordered Sig/Haja Route Start Time Stop Time Status Last Admin Dose Admin Sodium Chloride (Nss 1000ml) 1,000 ml @ 999 mls/hr Q1H1M ONCE IV 01/05/17 02:15 01/05/17 03:15 DC 01/05/17 02:15 999 MLS/HR Albuterol/ Ipratropium (Duoneb) 12 ml NOW ONCE INH 01/05/17 02:15 01/05/17 02:16 DC 01/05/17 02:17 12 ML ED Course Physical exam and history were performed. Nursing notes and EMR were reviewed. Patient appears to have a cough for the past several hours. She evidently mowed her lawn today and this started some of her symptoms. Her discomfort has worsened tonight. She will occasionally cough and have some shortness of breath. She arrives via ambulance. EKG was performed and was normal sinus rhythm at 71 beats per minutes without ischemia or ectopy. EKG is without significant change when compared to EKG of 10/19/2016. IV access was established and labs were obtained. Patient was hydrated with normal saline and given a one-hour DuoNeb treatment. I did offer the patient steroids, but she declined these as they tend to make her feel anxious. Patient's blood work is as above and was reviewed. She does not have a significantly elevated white blood cell count, gross anemia, bandemia, or significant electrolyte imbalance. Her troponin 1 is negative. D-dimer was elevated and CT scan was performed. CT scan does not show evidence of acute pulmonary embolism or pneumonia. There is an incidental 4 cm thoracic aortic aneurysm. This CT scan today was the first of her chest that she has had, and this finding does not appear to be contributing to her visit today. The patient did have improvement of her cough and her symptoms after her DuoNeb. She did not have chest pain or abdominal pain throughout her ER stay, and states that her shortness of breath has improved. I suspect that her symptoms are related to her mowing the grass today and having normal seasonal allergies. I will give the patient a prescription for albuterol inhaler and a short course of steroids that she may take if she likes. I did involve case management for this patient's care as she needs to follow with Dr. Jacob. Case management will help facilitate this appointment in order to have her followed regarding her aneurysm. The patient is otherwise to follow with her primary care physician for further management. She was invited back to the ER with any new, worsening, or concerning symptoms. The chart was completed utilizing [employer] Speech Voice Recognition Software. Grammatical errors, random word insertions, pronoun errors, and incomplete sentences are an occasional consequence of this system due to software limitations, ambient noise, and hardware issues. Any formal questions or concerns about the content, text, or information contained within the body of this dictation should be directly addressed to the provider for clarification. . Medical Decision Differential diagnosis includes, but is not limited to: Myocardial infarction, dysrhythmia, pericarditis, pneumothorax, aortic aneurysm/dissection, DVT/PE, anxiety, GERD, PUD, electrolyte imbalance, thyroid disorder, pneumonia, bronchitis, pancreatitis, and others Impression Primary Impression: Cough Additional Impression: Allergic reaction Departure Information Dispostion Home / Self-Care Condition GOOD Prescriptions Albuterol Hfa (VENTOLIN HFA) 200 Puffs/84632 Mcg Aers 2 PUFFS INH QID for 5 Days, #1 INHALER Prov: Brenton Couch PA-C 01/05/17 Prednisone (Prednisone) 50 Mg Tab 50 MG PO DAILY for 4 Days, #4 TAB Prov: Brenton Couch PA-C 01/05/17 Referrals Chris Larios MD Forms HOME CARE DOCUMENTATION FORM, IMPORTANT VISIT INFORMATION Patient Instructions My [facility] Additional Instructions You were seen and evaluated today on an emergency basis only. This is not a substitute for, or an effort to provide, complete comprehensive medical care. It is not possible to recognize and treat all injuries or illnesses in a single emergency department visit. For this reason it is recommended that you followup with your primary care physician this week for ongoing care and evaluation. Take prednisone 50 mg daily for the next 4 days. Use albuterol 2 puffs every 4 hours as needed You have an incidental 4 cm thoracic aortic aneurysm. We have not seen this on previous imaging, and this will need to be followed by Dr. Larios's office. Please call the office to schedule a follow-up. You are welcome to return to the emergency department anytime with new, worsening, or concerning symptoms. Problem Qualifiers
--- NOTE | 2017-01-05 06:47 | DIAGNOSTIC IMAGING REPORT ---
CT ANGIOGRAM OF THE CHEST CLINICAL HISTORY: Cough, shortness of breath, elevated d-dimer. COMPARISON STUDY: No previous studies for comparison. TECHNIQUE: Following the IV administration of 92 mL of Optiray-320, CT angiogram of the thorax was performed from the thoracic inlet to the lung bases utilizing the pulmonary embolus protocol. Images are reviewed in the axial, sagittal, and coronal planes. IV contrast was administered without complication. MIP imaging was performed. CT DOSE: 620.89 mGy.cm FINDINGS: There are multiple hepatic hypodensities which approach water attenuation likely represent cysts. There is mild nodular thickening of the left adrenal gland. There is small hiatal hernia. No pathologically enlarged axillary mediastinal or hilar lymph nodes were visualized. There is a multinodular thyroid goiter. There was no evidence of thoracic aortic dilatation. There were no pulmonary artery filling defects to indicate acute pulmonary embolism. No pleural effusions are visualized. There was no evidence of focal pulmonary consolidation. IMPRESSION: 1. No CT evidence of acute pulmonary embolism 2. No evidence of focal pulmonary consolidation 3. Multinodular thyroid goiter Electronically signed by: Mak Fischer M.D. 01/05/2017 6:46 AM Dictated Date/Time: 01/05/2017 6:40 AM
--- NOTE | 2017-01-05 06:48 | DIAGNOSTIC IMAGING REPORT ---
CHEST 2 VIEWS ROUTINE CLINICAL HISTORY: cough COMPARISON STUDY: No previous studies for comparison. FINDINGS: The cardiac and mediastinal contours are normal. There is no evidence of focal pulmonary consolidation. There is no evidence of failure. No pleural effusions are visualized.[ There is a scoliosis. There is retrocardiac gas consistent with a small hiatal hernia. IMPRESSION: No active disease in the chest. Electronically signed by: Mak Fischer M.D. 01/05/2017 6:47 AM Dictated Date/Time: 01/05/2017 6:46 AM
== END 2017-01-05 05:04 | disposition home or self-care (01) ==
LOC: C.EDB 01:54 → EDBD 01:54 → C.EDB 05:04
DX: R05 Cough (principal); T78.40XA Allergy, unspecified, initial encounter; X58.XXXA Exposure to other specified factors, initial encounter; I10 Essential (primary) hypertension; K21.9 Gastro-esophageal reflux disease without esophagitis; F41.9 Anxiety disorder, unspecified; F41.0 Panic disorder [episodic paroxysmal anxiety]; Z87.440 Personal history of urinary (tract) infections; Z79.899 Other long term (current) drug therapy; Z88.2 Allergy status to sulfonamides

== ENCOUNTER → 2017-02-10 | Outpatient (CLI) | payer OTHER ==
[~2017-02-10] MED LIST changes: -ALPR-411 PO; +ASCA500 PO; -CALC-393 PO; +CALC600T9 PO; +CRAN1CAP15 PO; +FLAX1CAP11 PO; -LECI1200 PO; -LISI-789 PO; +LSN5 PO; -MARSHMALLOW ROOT PO; -REDTAB PO
== END | disposition home or self-care (01) ==
LOC: C.LABSPEC 17:11
PROVIDERS: ATTEND Family Medicine
DX: N39.0 Urinary tract infection, site not specified (principal)

== ENCOUNTER → 2017-02-18 | Outpatient (CLI) | payer OTHER ==
[~2017-02-18] MED LIST changes: +PERFLUTREN LIPID MICROSPHERE (DEFINITY) IV ONE
--- NOTE | 2017-02-18 17:10 | ECHOCARDIOGRAM REPORT ---
*NOTICE TO RECEIVING CONSTITUTION PARTY AGENCY This information is strictly Confidential and protected under [place] law. [place] law prohibits you from making any further disclosure of this information unless further disclosure is expressly permitted by the written consent of the person to whom it pertains or is authorized by law. A general authorization for the release of medical or other information is not sufficient for this purpose. Hospital accepts no responsibility if the information is made available to any other person, INCLUDING THE PATIENT. Interpretation Summary * Name: WILMAN DODD Study Date: 02/18/2017 02:02 PM BP: 147/81 mmHg * Patient Location: [facility] HR: 66 * : 1955 (M/d/yyyy) Gender: Female Height: 66 in * Age: 61 yrs Ethnicity: [place] Weight: 240 lb * Ordering Physician: Linus Orona * Referring Physician: Linus Orona * Performed By: Jazz Key RDCS * * Reason For Study: DILATION OF ASCENDING AORTA ON CT SCAN * BSA: 2.2 m2 * -- Conclusions -- * 1. Normal ventricular size with hyperdynamic systolic function. EF > 70%. No regional wall motion abnormalities. No left ventricular hypertrophy. * 2. The left atrium is mildly dilated. * 3. No significant valvular abnormalities visualized. * 4. Technically difficult study, enhanced with IV Definity. * 5. There is no significant dilation of the ascending aorta noted, however the entire ascending aorta is not visualized. * 6. No prior study available for comparison. Procedure Details * A complete two-dimensional transthoracic echocardiogram was performed (2D, M-mode, Doppler and color flow Doppler). * The study was technically difficult. * There were technical limitations due to patient'sbody habitus * A contrast injection of Definity was performed to improve assessment of LV function. * Contrast was injected into an intravenous site in the left arm. * One vial of Definity ultrasound contrast was diluted in normal saline to a total volume of 10 ml. A total of '2' ml of solution was administered during imaging. * Lot # [id number] of Definity utilized for procedure. * Expiration date APR 24. * The attending nurse who injected the contrast agent was GRACIELA SANABRIA CPL, RN. Left Ventricle * Normal ventricular size with hyperdynamic systolic function. EF > 70%. No regional wall motion abnormalities. No left ventricular hypertrophy. Right Ventricle * The right ventricle is grossly normal size. * The right ventricular systolic function is normal as assessed by tricuspid annular plane systolic excursion (TAPSE) (normal >1.5 cm). * The right ventricular systolic function is normal. Atria * The left atrium is mildly dilated. * Right atrium not well visualized. * There is no evidence of atrial septal defect, but resolution does not allow assessment for a patent foramen ovale. Mitral Valve * The mitral valve is not well visualized. * There is no mitral valve stenosis. * Significant mitral regurgitation is absent. Tricuspid Valve * The tricuspid valve is not well visualized. * There is no tricuspid stenosis. * Significant tricuspid regurgitation is absent. Aortic Valve * The aortic valve is not well visualized. * No hemodynamically significant valvular aortic stenosis. * There is no significant aortic regurgitation. Pulmonic Valve * The pulmonary valve is inadequately visualized, but the Doppler data is adequate for interpretation. * There is no pulmonic valvular stenosis. * There is no significant pulmonary regurgitation. Great Vessels * The aortic root is normal size. Pericardium/Pleural * There is no pericardial effusion. Great Vessels * IVC normal in size. MMode 2D Measurements and Calculations IVSd 1.1 cm LVIDd 3.7 cm LVIDs 2.2 cm LVPWd 1.0 cm IVS/LVPW 1.1 FS 40.9 % EDV(Teich) 59.3 ml ESV(Teich) 16.3 ml EF(Teich) 72.5 % EDV(cubed) 52.0 ml ESV(cubed) 10.7 ml EF(cubed) 79.3 % LV mass(C)d 121.7 grams LV mass(C)dI 56.3 grams/m\S\2 CO(Teich) 3.1 l/min CI(Teich) 1.4 l/min/m\S\2 SV(Teich) 43.0 ml SI(Teich) 19.9 ml/m\S\2 CO(cubed) 2.9 l/min CI(cubed) 1.4 l/min/m\S\2 SV(cubed) 41.2 ml SI(cubed) 19.1 ml/m\S\2 Ao root diam 3.0 cm Ao root area 7.2 cm\S\2 LA dimension 4.5 cm asc Aorta Diam 2.9 cm LA/Ao 1.5 LVOT diam 2.0 cm LVOT area 3.2 cm\S\2 LVAd ap4 32.0 cm\S\2 LVLd ap4 8.1 cm LVAs ap4 17.2 cm\S\2 LVLs ap4 7.2 cm LVAd ap2 31.0 cm\S\2 LVLd ap2 8.2 cm LVAs ap2 16.3 cm\S\2 LVLs ap2 7.1 cm Doppler Measurements and Calculations MV E max veena 82.0 cm/sec MV A max veena 82.0 cm/sec MV E/A 1.0 MV P1/2t max veena 86.3 cm/sec MV P1/2t 73.7 msec MVA(P1/2t) 3.0 cm\S\2 MV dec slope 342.7 cm/sec\S\2 MV dec time 0.21 sec Ao V2 max 163.3 cm/sec Ao max PG 10.7 mmHg Ao max PG (full) 0.78 mmHg SABINO(V,A) 3.1 cm\S\2 SABINO(V,D) 3.1 cm\S\2 LV V1 max PG 9.9 mmHg LV V1 max 157.2 cm/sec TV E max veena 46.4 cm/sec PA V2 max 121.6 cm/sec PA max PG 5.9 mmHg
== END | disposition home or self-care (01) ==
LOC: C.CPL 13:48
PROVIDERS: ATTEND Family Medicine
DX: I77.810 Thoracic aortic ectasia (principal)

== ENCOUNTER → 2017-03-05 | Outpatient (CLI) | payer OTHER ==
[~2017-03-05] MED LIST changes: -PERFLUTREN LIPID MICROSPHERE (DEFINITY) IV ONE
--- NOTE | 2017-03-05 19:10 | DIAGNOSTIC IMAGING REPORT ---
RIGHT PELVIS/UNILATERAL HIP 2-3VIEWS CLINICAL HISTORY: Right hip pain. No known injury. COMPARISON: CT of the abdomen and pelvis November 12, 2006. FINDINGS: Levoscoliosis is noted within visualized portions of the lumbar spine. Sacroiliac joints and symphysis pubis are intact. There is no acute fracture or suspicious osseous lesion within the pelvis or the hips. Alignment of the hips is anatomic. Joint spaces are preserved. There is mild osteophytosis of the right hip. There is no evidence for avascular necrosis. IMPRESSION: 1. No acute fracture within the pelvis or hips. 2. Preserved hip joint spaces with mild osteophytosis of the right hip. 3. Levoscoliosis within visualized portions of the lumbar spine. Electronically signed by: David Damon M.D. 03/05/2017 7:09 PM Dictated Date/Time: 03/05/2017 7:07 PM
== END | disposition home or self-care (01) ==
LOC: C.RAD 18:38
PROVIDERS: ATTEND Family Medicine
DX: M25.551 Pain in right hip (principal); M41.9 Scoliosis, unspecified

== ENCOUNTER → 2017-06-05 | Outpatient (CLI) | payer OTHER ==
[2017-06-05 13:11] LABS: BASO % 0.5 %; BASO ABS # 0.04 K/uL (0-0.2); COMPLETE YES; EOS % 5.9 %; HEMATOCRIT 38.7 % (37-47); IG% 0.1 %; LYMPH % 29.6 %; MEAN CELL VOLUME 85.1 fL (80-100); MEAN CORPUSCULAR HGB CONC 34.1 g/dl (32-36); MEAN PLATELET VOLUME 10.7 fL (7.4-10.4); MONO % 8.7 %; NEUT % 55.2 %; PLATELET COUNT 199 K/uL (130-400); RED BLOOD COUNT 4.55 M/uL (4.2-5.4); WHITE BLOOD COUNT 7.44 K/uL (4.8-10.8)
[2017-06-05 13:22] LABS: ESTIMATED AVERAGE GLUCOSE 123 mg/dl; HA1C FLAG Normal (Normal)
[2017-06-05 13:47] LABS: ALT/SGPT 23 U/L (12-78); AST/SGOT 14 U/L (15-37); BLOOD UREA NITROGEN 15 mg/dl (7-18); BUN/CREATININE RATIO 15.9 (10-20); CALCIUM 9.2 mg/dl (8.5-10.1); CARBON DIOXIDE 31 mmol/L (21-32); CHLORIDE 100 mmol/L (98-107); CHOLESTEROL 227 mg/dl (0-200); CREATININE 0.94 mg/dl (0.60-1.20); GLUCOSE 89 mg/dl (70-99); POTASSIUM 3.3 mmol/L (3.5-5.1); SODIUM 137 mmol/L (136-145); TRIGLYCERIDES 140 mg/dl (0-150); URIC ACID 8.7 mg/dl (2.6-7.2); VERY LOW DENSITY LIPOPROT CALC 28 mg/dl
[2017-06-05 14:01] LABS: ALB/GLOB RATIO 0.7 (0.9-2); ALKALINE PHOSPHATASE 92 U/L (45-117); CHOLESTEROL/HDL RATIO 3.8; HDL CHOLESTEROL 59 mg/dl; LDL CHOLESTEROL CALCULATED 140 mg/dl; TOTAL IRON BINDING CAPACITY 321 mcg/dl (250-450)
--- NOTE | 2017-06-10 12:51 | CODING QUERY MEDICAL NECESSITY ---
SUPPORTING DIAGNOSIS NEEDED Dr. Orona, A supporting diagnosis is required for the test/procedure performed on this patient in order for us to be reimbursed by the patient's insurance. Please provide a supporting diagnosis for the following test/procedure listed below next to the test name along with your signature. *If there is no additional diagnosis for this patient that would support the following test/procedure please document that below next to the test/procedure. Test(s)/Procedure(s) that require a supporting diagnosis: * [address]1859 GLYCATED HEMOGLOBIN DIAGNOSIS: DATE OF SERVICE: 06/05/17 Provider Signature: Date: Thank you Yaron Keith [facility] Information Management Once completed, please kindly fax back to [phone] For questions please call [phone]
== END | disposition home or self-care (01) ==
LOC: C.LAB 11:48
PROVIDERS: ATTEND Family Medicine
DX: E88.81 Metabolic syndrome and other insulin resistance (principal); E55.9 Vitamin D deficiency, unspecified; D51.9 Vitamin B12 deficiency anemia, unspecified; E78.9 Disorder of lipoprotein metabolism, unspecified; R53.83 Other fatigue

== ENCOUNTER 2017-06-07 15:55 | Emergency (ER) | payer OTHER ==
[~2017-06-07] VITALS: Ht 167.6 cm; Wt 108.7 kg
[2017-06-07 16:00] VITALS: TEMP 37; Ht 167.6 cm; Wt 108.7 kg
[2017-06-07] MEDS ORDERED: SODIUM CHLORIDE 0.9% 1000ML 1,000 ML IV STA (16:20)
--- NOTE | 2017-06-07 16:54 | EMERGENCY ROOM VISIT NOTE ---
History Report prepared by Eric: Paco Lombardo Under the Supervision of: Dr. Wily Finney M.D. First contact with patient: 16:05 Chief Complaint: HYPERTENSION Stated Complaint: BP SPIKE,HEART OUT OF RYTHYM History of Present Illness The patient is a 62 year old female who presents to the Emergency Room with complaints of a sudden blood pressure spike occurring earlier in the day. The patient additionally states that her heart has been out of rhythm. The patient states that five days ago she went up the stairs she became very short of breath and she thought she was going to pass out so she checked her heart rate and blood pressure. She states that the pressure was high, and she was having an out of rhythm heart rate. She states that today she was walking around [employer], and she became suddenly weak, short of breath, and dizzy. The patient states that she denies any chest pain, abnormal abdominal pain, fever, melena, hematochezia, and injury or trauma. The patient additionally states that when she eats she becomes nauseous and gassy, and this increases her blood pressure, and after releasing the gas her blood pressure gets better. The patient states that she has been having stomach issues for the past 10 months after getting a 16 day course of sulfa antibiotics which she was allergic to. She states that she took the antibiotics for a kidney infection after having a bad virus. She denies any trouble swallowing or history of diabetes. Source of History: patient, friend Onset: earlier today Position: other (global) Quality: other (high blood pressure) Timing: other (sudden) Associated Symptoms: + SOB, + nausea, + weakness, No fevers, No abdominal pain, No melena, No hematochezia Note: Associated symptoms: Heart out of rhythm, dizziness Review of Systems See HPI for pertinent positives & negatives. A total of 10 systems reviewed and were otherwise negative. Past Medical & Surgical Medical Problems: (1) Anxiety (2) Esophageal Reflux (3) Esophageal Stricture (4) Foreign Body Esophagus (5) Hypertension Nos (6) Panic disorder (7) Urin Tract Infection Nos (8) Vasovagal attack Old medical records were reviewed. Nurse's notes were reviewed and I agree with. Family History Patient reports no known family medical history. Social History Smoking Status: Former Smoker Alcohol Use: none Drug Use: none Marital Status: Occupation Status: employed Current/Historical Medications Scheduled Ascorbic Acid (Vitamin C), 500 MG PO TID Calcium Carbonate-Vitamin D (Calcium + D), 1 TAB PO BID Flaxseed (Linseed) (Flax Seed Oil), 1 TAB PO DAILY Hctz/Spironolactone 25MG/25MG (Aldactazide 25MG/25MG), 1 TAB PO QAM Milk Thistle (Silybum Marianum (Milk Thistle), 1 CAP PO DAILY Ranitidine (Zantac), 300 MG PO BID Sucralfate (Carafate), 1 GM PO ACHS Allergies Coded Allergies: Sulfa Antibiotics (Verified Allergy, Unknown, MULTIPLE STOMACH PROBLEMS, MOUTH LESIONS, 06/07/17) Lisinopril (Verified Adverse Reaction, Severe, COUGH, 06/07/17) Physical Exam Vital Signs Date Time Temp Pulse Resp B/P (MAP) Pulse Ox O2 Delivery O2 Flow Rate FiO2 06/07/17 17:34 70 16 174/84 97 Room Air 06/07/17 16:00 37.0 74 20 177/83 96 Room Air Physical Exam General: Non-ill middle aged female in no acute distress. HEENT: Normal cephalic atraumatic. Pupils are equal round and reactive to light. Extraocular movements are intact. Oropharynx is pink with moist mucous membranes. No swelling of the mouth lips or tongue. Neck: Supple with a midline trachea. No meningeal signs or stiffness, no JVD or bruits. No Stridor. Chest: Clear to auscultation bilaterally. No wheezes or rhonchi. No increased work of breathing. Heart: regular rate and rhythm. Abdomen: Soft nontender, nondistended without rebound guarding or rigidity. Extremities: Lower extremity has chronic skin findings. Trace lower extremity edema. No cyanosis or clubbing. No calf tenderness or assymetry Spine/Back. Non tender to palpation. No CVA tenderness Skin: Good turgor without rashes. Neurologic exam: Cranial nerves two through 12 are intact. Motor and sensation are intact and symmetrical throughout. Medical Decision & Procedures ER Provider Diagnostic Interpretation: Chest x-ray per my interpretation reveals no pneumothorax, failure, or infiltrate. Laboratory Results 06/07/17 16:41 Red Blood Count 4.58, Mean Corpuscular Volume 85.2, Mean Corpuscular Hemoglobin 30.1, Mean Corpuscular Hemoglobin Concent 35.4, Mean Platelet Volume 10.4, Neutrophils (%) (Auto) 66.9, Lymphocytes (%) (Auto) 23.3, Monocytes (%) (Auto) 6.3, Eosinophils (%) (Auto) 2.9, Basophils (%) (Auto) 0.4, Neutrophils # (Auto) 5.46, Lymphocytes # (Auto) 1.90, Monocytes # (Auto) 0.51, Eosinophils # (Auto) 0.24, Basophils # (Auto) 0.03 06/07/17 16:41 Test 06/07/17 16:41 06/07/17 17:31 White Blood Count 8.16 K/uL (4.8-10.8) Red Blood Count 4.58 M/uL (4.2-5.4) Hemoglobin 13.8 g/dL (12.0-16.0) Hematocrit 39.0 % (37-47) Mean Corpuscular Volume 85.2 fL (80-100) Mean Corpuscular Hemoglobin 30.1 pg (25-34) Mean Corpuscular Hemoglobin Concent 35.4 g/dl (32-36) Platelet Count 247 K/uL (130-400) Mean Platelet Volume 10.4 fL (7.4-10.4) Neutrophils (%) (Auto) 66.9 % Lymphocytes (%) (Auto) 23.3 % Monocytes (%) (Auto) 6.3 % Eosinophils (%) (Auto) 2.9 % Basophils (%) (Auto) 0.4 % Neutrophils # (Auto) 5.46 K/uL (1.4-6.5) Lymphocytes # (Auto) 1.90 K/uL (1.2-3.4) Monocytes # (Auto) 0.51 K/uL (0.11-0.59) Eosinophils # (Auto) 0.24 K/uL (0-0.5) Basophils # (Auto) 0.03 K/uL (0-0.2) RDW Standard Deviation 42.8 fL (36.4-46.3) RDW Coefficient of Variation 13.8 % (11.5-14.5) Immature Granulocyte % (Auto) 0.2 % Immature Granulocyte # (Auto) 0.02 K/uL (0.00-0.02) Anion Gap 9.0 mmol/L (3-11) Est Creatinine Clear Calc Drug Dose 64.5 ml/min Estimated GFR () 61.4 Estimated GFR (Non- 53.0 BUN/Creatinine Ratio 12.8 (10-20) Calcium Level 9.6 mg/dl (8.5-10.1) Magnesium Level 2.3 mg/dl (1.8-2.4) Total Bilirubin 0.3 mg/dl (0.2-1) Direct Bilirubin < 0.1 mg/dl (0-0.2) Aspartate Amino Transf (AST/SGOT) 15 U/L (15-37) Alanine Aminotransferase (ALT/SGPT) 25 U/L (12-78) Alkaline Phosphatase 91 U/L (45-117) Total Creatine Kinase 100 U/L (26-192) Creatine Kinase MB 1.7 ng/ml (0.5-3.6) Creatine Kinase MB Ratio 1.7 (0-3.0) Troponin I 0.025 ng/ml (0-0.045) Total Protein 8.3 gm/dl (6.4-8.2) Albumin 3.4 gm/dl (3.4-5.0) Lipase 197 U/L (73-393) Thyroid Stimulating Hormone (TSH) 0.908 uIu/ml (0.300-4.500) Bedside Troponin I < 0.030 ng/ml (0-0.045) Laboratory studies as stated above per my review. Medications Administered Medications (Trade) Dose Ordered Sig/Haja Route Start Time Stop Time Status Last Admin Dose Admin Sodium Chloride 1,000 ml @ 999 mls/hr Q1H1M STAT IV 06/07/17 16:20 06/07/17 17:20 DC 06/07/17 16:20 999 MLS/HR Potassium Chloride (Klor-Con M10) 40 meq NOW STAT PO 06/07/17 17:32 06/07/17 17:34 DC 06/07/17 17:47 40 MEQ ECG Indication: other (hypertension and irregular heart rate) Rate (beats per minute): 72 Rhythm: normal sinus Findings: PVC (frequent), no acute ischemic change Comparison ECG Date: 01/05/17 Change: PVC are now present ED Course 1605: Past medical records reviewed. The patient was evaluated in room A11, and a complete history and physical examination were performed. 1620: Sodium Chloride 1000 ml @ 999 mls/hr IV 1714: I reevaluated the patient, and she was resting comfortably in no distress. 1732: Potassium Chloride 40meq PO 1734: Upon reevaluation, the patient is resting comfortably. I discussed the results and treatment plan with her. She verbalized agreement of the treatment plan. The patient was discharged home. Medical Decision Differentials include, but are not limited to; arrhythmia, acute coronary syndrome, anxiety, electrolyte or metabolic abnormality, thyroid disease, dehydration This patient comes in as described above. She is placed in room A 11. She is here for treatment and evaluation of a spike in her blood pressure and she said she did not feel well. She said that her blood pressure cuff told her heart was out of rhythm. She has a regular heart on exam is feeling better. IV access was established was hydrated with IV normal saline. EKG was obtained and multiple blood testing was obtained. She's had symptoms like this been going on for quite some time. Chest x-ray and blood testing was obtained as well. She was reassessed frequently. EKG shows no ischemic changes however she does have frequent PVCs. She denies that she had these before. Her potassium came back low at 3.1. It is possibly that this is precipitating these. She was given KCl 40 mEq by mouth. Cardiac enzymes were normal. She's had nothing to suggest acute coronary syndrome. Chest x-ray was clear there is nothing to suggest congestive heart failure, pneumonia, or pneumothorax. She feels better when like to go home she is on Aldactone which could raise her potassium. It's also with hCTZ which could actually lower the potassium up. I think she should increase her dietary potassium follow-up with her doctor for recheck in 1-2 days return if: Worsening symptoms, chest pain or shortness breath, any problems concerns. She is happy with plan and discharged home. Medication Reconcilliation Current Medication List: was personally reviewed by me Blood Pressure Screening Patient's blood pressure: Elevated blood pressure Blood pressure disposition: Referred to PCP Impression Primary Impression: Palpitations Additional Impressions: PVC (premature ventricular contraction) Hypokalemia Scribe Attestation The scribe's documentation has been prepared under my direction and personally reviewed by me in its entirety. I confirm that the note above accurately reflects all work, treatment, procedures, and medical decision making performed by me. Departure Information Dispostion Home / Self-Care Referrals Linus Orona M.D. (PCP) Forms HOME CARE DOCUMENTATION FORM, IMPORTANT VISIT INFORMATION, WORK / SCHOOL INSTRUCTIONS Patient Instructions My [facility] Additional Instructions Rest Drink plenty of fluids Increase your dietary potassium Return if: worsening of symptoms, chest pain, shortness of rbreath, any new problems or concerns Follow-up with Dr. Orona in 1-2 days for recheck Problem Qualifiers
[2017-06-07 16:56] LABS: BASO % 0.4 %; BASO ABS # 0.03 K/uL (0-0.2); COMPLETE YES; EOS % 2.9 %; IG% 0.2 %; LYMPH % 23.3 %; MEAN CELL VOLUME 85.2 fL (80-100); MEAN CORPUSCULAR HEMOGLOBIN 30.1 pg (25-34); MEAN CORPUSCULAR HGB CONC 35.4 g/dl (32-36); MEAN PLATELET VOLUME 10.4 fL (7.4-10.4); MONO % 6.3 %; NEUT % 66.9 %; PLATELET COUNT 247 K/uL (130-400); RED BLOOD COUNT 4.58 M/uL (4.2-5.4); WHITE BLOOD COUNT 8.16 K/uL (4.8-10.8)
[2017-06-07 17:16] LABS: ALT/SGPT 25 U/L (12-78); AST/SGOT 15 U/L (15-37); BLOOD UREA NITROGEN 14 mg/dl (7-18); BUN/CREATININE RATIO 12.8 (10-20); CALCIUM 9.6 mg/dl (8.5-10.1); CARBON DIOXIDE 29 mmol/L (21-32); CHLORIDE 101 mmol/L (98-107); GLUCOSE 95 mg/dl (70-99); MAGNESIUM 2.3 mg/dl (1.8-2.4); POTASSIUM 3.1 mmol/L (3.5-5.1); SODIUM 139 mmol/L (136-145)
[2017-06-07 17:25] LABS: ALKALINE PHOSPHATASE 91 U/L (45-117); CKMB/CK RATIO 1.7 (0-3.0); THYROID STIMULATING HORMONE 0.908 uIu/ml (0.300-4.500)
[2017-06-07] MEDS ORDERED: POTASSIUM CHLORIDE 10 MEQ TABCR PO STA (17:32)
--- NOTE | 2017-06-07 18:04 | DIAGNOSTIC IMAGING REPORT ---
CHEST ONE VIEW PORTABLE HISTORY: 62 years-old Female CHEST PAIN acute atypical chest pain. COMPARISON: Chest radiograph 01/05/2017 TECHNIQUE: Portable upright AP view of the chest FINDINGS: Cardiac mediastinal and hilar silhouettes are within normal limits. No pneumothorax, pleural effusion or focal airspace consolidation. No overt pulmonary edema. The bones are grossly intact. There is unchanged sigmoidal scoliosis of the thoracolumbar spine. IMPRESSION: No acute cardiopulmonary process. The above report was generated using voice recognition software. It may contain grammatical, syntax or spelling errors. Electronically signed by: Cedric Dutta M.D. 06/07/2017 6:03 PM Dictated Date/Time: 06/07/2017 6:02 PM
[2017-06-07 18:42] VITALS: BP 145/76; PULSE 88; O2SAT 98
== END 2017-06-07 18:43 | disposition home or self-care (01) ==
LOC: C.EDB 15:56 → C.EDA 18:43
DX: R00.2 Palpitations (principal); I49.3 Ventricular premature depolarization; E87.6 Hypokalemia; K21.9 Gastro-esophageal reflux disease without esophagitis; I10 Essential (primary) hypertension; F41.9 Anxiety disorder, unspecified; Z87.440 Personal history of urinary (tract) infections; Z87.891 Personal history of nicotine dependence; Z79.899 Other long term (current) drug therapy; Z88.2 Allergy status to sulfonamides; Z88.8 Allergy status to other drugs, medicaments and biological substances

== ENCOUNTER → 2017-06-12 | Outpatient (CLI) | payer OTHER ==
[~2017-06-12] MED LIST changes: -CRAN1CAP15 PO; -LSN5 PO
[2017-06-12 13:15] LABS: BLOOD UREA NITROGEN 12 mg/dl (7-18); BUN/CREATININE RATIO 12.1 (10-20); CALCIUM 9.2 mg/dl (8.5-10.1); CARBON DIOXIDE 26 mmol/L (21-32); CHLORIDE 104 mmol/L (98-107); CREATININE 0.95 mg/dl (0.60-1.20); GLUCOSE 110 mg/dl (70-99); MAGNESIUM 2.5 mg/dl (1.8-2.4); POTASSIUM 4.1 mmol/L (3.5-5.1); SODIUM 137 mmol/L (136-145)
== END | disposition home or self-care (01) ==
LOC: C.LAB 12:25
PROVIDERS: ATTEND Family Medicine
DX: E87.6 Hypokalemia (principal)

== ENCOUNTER → 2017-07-02 | Outpatient (CLI) | payer OTHER ==
[2017-07-02 12:59] LABS: BLOOD UREA NITROGEN 13 mg/dl (7-18); BUN/CREATININE RATIO 12.6 (10-20); CALCIUM 9.3 mg/dl (8.5-10.1); CARBON DIOXIDE 29 mmol/L (21-32); CHLORIDE 100 mmol/L (98-107); CREATININE 1.06 mg/dl (0.60-1.20); GLUCOSE 90 mg/dl (70-99); POTASSIUM 3.5 mmol/L (3.5-5.1); SODIUM 136 mmol/L (136-145)
== END | disposition home or self-care (01) ==
LOC: C.LAB 11:53
PROVIDERS: ATTEND Family Medicine
DX: R00.2 Palpitations (principal)

== ENCOUNTER 2017-08-21 16:06 | Observation (INO) | payer OTHER ==
[~2017-08-21] VITALS: Ht 167.6 cm; Wt 108.6 kg
[~2017-08-21 16:06] MED LIST changes: -HYDR12.55 PO; -MAGN1CAP2 PO; -POTA-74 PO; -SPIR25TA89 PO
[2017-08-21] MEDS ORDERED: ASPIRIN 324 MG CHEW PO STA (16:20)
[2017-08-21] MEDS ORDERED: POTA-74 PO (16:26)
[2017-08-21] MEDS ORDERED: SPIR25TA89 PO (16:26)
[2017-08-21] MEDS ORDERED: HYDR12.55 PO (16:26)
[2017-08-21] MEDS ORDERED: MAGN1CAP2 PO (16:26)
--- NOTE | 2017-08-21 17:05 | DIAGNOSTIC IMAGING REPORT ---
CHEST ONE VIEW PORTABLE HISTORY: Atypical chest pain. COMPARISON: Chest 06/07/2017. FINDINGS: The lungs are clear. Cardiac silhouette is normal in size. No pleural effusions. No pneumothorax. IMPRESSION: No acute process. Electronically signed by: Kennedy Kelly M.D. 08/21/2017 5:03 PM Dictated Date/Time: 08/21/2017 5:02 PM
[2017-08-21 17:21] LABS: BASO % 0.5 %; BASO ABS # 0.04 K/uL (0-0.2); COMPLETE YES; EOS % 3.7 %; IG% 0.2 %; LYMPH % 23.3 %; LYMPH ABS # 1.91 K/uL (1.2-3.4); MEAN CELL VOLUME 86.7 fL (80-100); MEAN CORPUSCULAR HGB CONC 33.5 g/dl (32-36); MEAN PLATELET VOLUME 10.7 fL (7.4-10.4); MONO % 7.9 %; NEUT % 64.4 %; PLATELET COUNT 212 K/uL (130-400); RED BLOOD COUNT 4.96 M/uL (4.2-5.4)
[2017-08-21 17:44] LABS: BLOOD UREA NITROGEN 12 mg/dl (7-18); BUN/CREATININE RATIO 11.9 (10-20); CALCIUM 9.4 mg/dl (8.5-10.1); CARBON DIOXIDE 27 mmol/L (21-32); CHLORIDE 103 mmol/L (98-107); CREATININE 1.01 mg/dl (0.60-1.20); GLUCOSE 96 mg/dl (70-99); POTASSIUM 3.7 mmol/L (3.5-5.1); SODIUM 136 mmol/L (136-145)
[2017-08-21 17:50] LABS: PARTIAL THROMBOPLASTIN RATIO 1.2; PROTHROMBIN TIME (PATIENT) 10.5 SECONDS (9.0-12.0)
--- NOTE | 2017-08-21 19:48 | History and Physical ---
History & Physical Date & Time of Service: Aug 21, 2017 at 19:35 Chief Complaint: Cardiac Symptoms Primary Care Physician: Linus Orona M.D. History of Present Illness Source: patient, clinic records, hospital records This is a 62 year old female with a PMH of GERD, HTN - recent hx. of palpitations and PVCs, is here secondary to palpitations. As per patient, she has been having palpitations for the past two months. She was seen by her primary care physician for this and was given blood pressure pills due to high blood pressure. She was also told to wear a heart monitor for a month; and was told she had recurrent PVCs and accelerated heart rates. She states that sometimes she gets dehydrated and this causes her heart rates to go up. She had an echo done today due to ascending aorta dilatation (followed by Dr. Larios) . Has some pain on b/l arms and across her back with these palpitations. Currently, she is resting comfortably with no issues. Past Medical/Surgical History Medical Problems: (1) Anxiety Status: Chronic (2) Esophageal Reflux Status: Chronic (3) Esophageal Stricture Status: Chronic (4) Foreign Body Esophagus Status: Resolved (5) Hypertension Nos Status: Chronic (6) Panic disorder Status: Chronic (7) Urin Tract Infection Nos Status: Resolved (8) Vasovagal attack Status: Resolved Family History Patient reports no known family medical history. Social History Smoking Status: Former Smoker Drug Use: none Marital Status: Housing status: lives with family Occupational Status: employed Multi-Drug Resistant Organisms History of MDRO: No Allergies Coded Allergies: Sulfa Antibiotics (Verified Allergy, Unknown, MULTIPLE STOMACH PROBLEMS, MOUTH LESIONS, 08/21/17) Lisinopril (Verified Adverse Reaction, Severe, COUGH, 08/21/17) Home Medications Scheduled Ascorbic Acid (Vitamin C), 500 MG PO TID Calcium Carbonate-Vitamin D (Calcium + D), 1 TAB PO BID Flaxseed (Linseed) (Flax Seed Oil), 1 TAB PO DAILY Hydrochlorothiazide (Hydrochlorothiazide), 12.5 MG PO DAILY Magnesium Oxide (Mg Supplement (Magnesium), 400 MG PO DAILY Milk Thistle (Silybum Marianum (Milk Thistle), 1 CAP PO DAILY Potassium Chloride (Potassium Chloride Er), 10 MEQ PO BID Ranitidine (Zantac), 300 MG PO BID Spironolactone (Aldactone), 25 MG PO DAILY Sucralfate (Carafate), 1 GM PO ACHS Review of Systems Constitutional: No fever, No chills, No sweats, No weakness Eyes: No worsening of vision, No eye pain ENT: No hearing loss Respiratory: No cough, No sputum, No wheezing, No shortness of breath, No dyspnea on exertion, No dyspnea at rest, No hemoptysis Cardiovascular: + edema (intermittent b/l LE edema), + palpitations, No chest pain, No orthopnea Abdomen: No pain, No nausea, No vomiting, No diarrhea, No constipation, No GI bleeding Musculoskeletal: No joint pain, No muscle pain Genitourinary - Female: No dysuria, No urinary frequency, No urinary urgency, No urinary incontinence, No urinary retention, No hematuria Neurologic: No weakness, No numbness/tingling, No vertigo, No balance problems Psychiatric: No depression symptoms, No anxiety, No insomnia Endocrine: No fatigue Hematologic / Lymphatic: No abnormal bleeding/bruising Integumentary: No rash Allergic / Immunologic: No environmental allergies, No seasonal allergies Physical Exam Vital Signs Date Time Temp Pulse Resp B/P (MAP) Pulse Ox O2 Delivery O2 Flow Rate FiO2 08/21/17 18:41 72 25 97 08/21/17 18:26 74 15 96 08/21/17 18:11 71 11 96 08/21/17 18:09 175/82 08/21/17 18:09 70 18 175/82 97 Room Air 08/21/17 17:56 77 19 08/21/17 17:51 78 21 08/21/17 16:22 97 Room Air 08/21/17 16:21 70 19 97 08/21/17 16:20 Room Air 08/21/17 16:16 73 18 167/71 97 Room Air 08/21/17 16:16 73 08/21/17 16:14 97 Room Air 08/21/17 16:13 167/71 General Appearance: no apparent distress Head: normocephalic, atraumatic Eyes: normal inspection ENT: hearing grossly normal Neck: supple Respiratory/Chest: chest non-tender, lungs clear, normal breath sounds, no respiratory distress, no accessory muscle use Cardiovascular: regular rate, rhythm, no edema, no gallop, no JVD, no murmur, normal peripheral pulses Abdomen/GI: normal bowel sounds, non tender, soft, no organomegaly Back: no CVA tenderness, no muscle spasm Extremities/Musculoskelatal: normal inspection, no calf tenderness, normal capillary refill, no pedal edema, normal range of motion 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, no motor/sensory deficits, alert, normal mood/affect, oriented x 3 Skin: normal color Lymphatic: no adenopathy Diagnostics Laboratory Results Results Past 24 Hours Test 08/21/17 16:47 Range/Units White Blood Count 8.20 4.8-10.8 K/uL Red Blood Count 4.96 4.2-5.4 M/uL Hemoglobin 14.4 12.0-16.0 g/dL Hematocrit 43.0 37-47 % Mean Corpuscular Volume 86.7 80-100 fL Mean Corpuscular Hemoglobin 29.0 25-34 pg Mean Corpuscular Hemoglobin Concent 33.5 32-36 g/dl Platelet Count 212 130-400 K/uL Mean Platelet Volume 10.7 7.4-10.4 fL Neutrophils (%) (Auto) 64.4 % Lymphocytes (%) (Auto) 23.3 % Monocytes (%) (Auto) 7.9 % Eosinophils (%) (Auto) 3.7 % Basophils (%) (Auto) 0.5 % Neutrophils # (Auto) 5.28 1.4-6.5 K/uL Lymphocytes # (Auto) 1.91 1.2-3.4 K/uL Monocytes # (Auto) 0.65 0.11-0.59 K/uL Eosinophils # (Auto) 0.30 0-0.5 K/uL Basophils # (Auto) 0.04 0-0.2 K/uL RDW Standard Deviation 44.7 36.4-46.3 fL RDW Coefficient of Variation 14.1 11.5-14.5 % Immature Granulocyte % (Auto) 0.2 % Immature Granulocyte # (Auto) 0.02 0.00-0.02 K/uL Prothrombin Time 10.5 9.0-12.0 SECONDS Prothromb Time International Ratio 1.0 0.9-1.1 Activated Partial Thromboplast Time 31.0 21.0-31.0 SECONDS Partial Thromboplastin Ratio 1.2 Sodium Level 136 136-145 mmol/L Potassium Level 3.7 3.5-5.1 mmol/L Chloride Level 103 98-107 mmol/L Carbon Dioxide Level 27 21-32 mmol/L Anion Gap 6.0 3-11 mmol/L Blood Urea Nitrogen 12 7-18 mg/dl Creatinine 1.01 0.60-1.20 mg/dl Est Creatinine Clear Calc Drug Dose 71.5 ml/min Estimated GFR () 68.1 Estimated GFR (Non- 58.8 BUN/Creatinine Ratio 11.9 10-20 Random Glucose 96 70-99 mg/dl Calcium Level 9.4 8.5-10.1 mg/dl Magnesium Level 2.0 1.8-2.4 mg/dl Troponin I < 0.015 0-0.045 ng/ml Diagnostic Radiology CHEST ONE VIEW PORTABLE HISTORY: Atypical chest pain. COMPARISON: Chest 06/07/2017. FINDINGS: The lungs are clear. Cardiac silhouette is normal in size. No pleural effusions. No pneumothorax. IMPRESSION: No acute process. EKG Normal sinus rhythm Low voltage QRS Borderline ECG Impression Assessment and Plan This is a 62 year old female with a PMH of GERD, HTN - recent hx. of palpitations and PVCs, is here secondary to palpitations. Recurrent Palpitations possibly symptomatic PVCs will monitor in tele she has had a Holter recommended b-devonte, though patient giving some push-back due to concern about side effects will consult cardiology for further input will trend cardiac enzymes check TSH echo already done with normal LVEF, mild LV hypertrophy HTN monitor closely continuing Aldactone for now hold HCTZ and give IVFs GERD continue Zantac and Carafate DVT ppx Lovenox FULL CODE VTE Prophylaxis VTE Risk Assessment Done? Y/N: Yes Risk Level: Moderate
[2017-08-21] MEDS ORDERED: IV FLUIDS COMPLETED PRN (21:00)
[2017-08-21 21:31] VITALS: BP 148/76; PULSE 74; TEMP 36.8; O2SAT 97
[2017-08-21] MEDS: SODIUM CHLORIDE 0.9% 1000ML 1,000 ML IV SCH (21:40)
[2017-08-21] MEDS: POTASSIUM CHLORIDE 10 MEQ TABCR PO SCH (21:42)
[2017-08-21] MEDS: SUCRALFATE 1 GM TAB PO SCH (21:42)
[2017-08-21] MEDS: RANITIDINE HCL 150 MG TAB PO SCH (21:43)
[2017-08-21] MEDS: CALCIUM 600MG + VIT D 400 IU TAB PO SCH (21:43)
[2017-08-21] MEDS ORDERED: ENOXAPARIN 40 MG/0.4 ML SYR SC SCH (22:00)
[2017-08-21 22:17] VITALS: Ht 167.6 cm; Wt 108.6 kg
[2017-08-21 23:04] VITALS: BP 130/76; PULSE 69; TEMP 36.8; O2SAT 94
[2017-08-22 01:31] LABS: CKMB/CK RATIO 2.9 (0-3.0)
[2017-08-22 05:04] VITALS: BP 149/84; PULSE 71; TEMP 36.8; O2SAT 95
[2017-08-22] MEDS: SUCRALFATE 1 GM TAB PO SCH ×2 (06:14→11:39)
[2017-08-22 07:10] VITALS: BP 126/77; PULSE 61; TEMP 36.5; O2SAT 95
[2017-08-22 08:00] VITALS: O2SAT 95
[2017-08-22] MEDS ORDERED: SPIRONOLACTONE 25 MG TAB PO SCH (09:00)
[2017-08-22] MEDS ORDERED: MAGNESIUM OXIDE 400 MG TAB PO SCH (09:00)
[2017-08-22] MEDS: RANITIDINE HCL 150 MG TAB PO SCH (09:03)
[2017-08-22] MEDS: CALCIUM 600MG + VIT D 400 IU TAB PO SCH (09:03)
[2017-08-22] MEDS: POTASSIUM CHLORIDE 10 MEQ TABCR PO SCH (09:04)
[2017-08-22 10:14] LABS: HEMATOCRIT 42.2 % (37-47); MEAN CELL VOLUME 86.8 fL (80-100); MEAN CORPUSCULAR HEMOGLOBIN 28.6 pg (25-34); MEAN CORPUSCULAR HGB CONC 32.9 g/dl (32-36); MEAN PLATELET VOLUME 10.3 fL (7.4-10.4); PLATELET COUNT 227 K/uL (130-400); RED BLOOD COUNT 4.86 M/uL (4.2-5.4); WHITE BLOOD COUNT 6.84 K/uL (4.8-10.8)
[2017-08-22] MEDS ORDERED: POTASSIUM CHLORIDE 20 MEQ TABCR PO STA (10:44)
[2017-08-22 10:46] LABS: BUN/CREATININE RATIO 12.3 (10-20); CALCIUM 9.4 mg/dl (8.5-10.1); CREATININE 0.99 mg/dl (0.60-1.20)
[2017-08-22 10:50] LABS: CKMB/CK RATIO 2.4 (0-3.0)
[2017-08-22 10:56] LABS: THYROID STIMULATING HORMONE 1.24 uIu/ml (0.300-4.500)
[2017-08-22 11:28] VITALS: BP 146/84; PULSE 66; TEMP 36.7; O2SAT 95
[2017-08-22] MEDS: SODIUM CHLORIDE 0.9% 1000ML 1,000 ML IV SCH (11:39)
--- NOTE | 2017-08-22 12:01 | Discharge Instructions ---
Discharge Instructions Date of Service Aug 22, 2017. Admission Reason for Admission: Chest Pain, Heart Palpitations Discharge Discharge Diagnosis / Problem: palpitations Discharge Goals Goal(s): Learn about illness, Diagnostic testing Activity Recommendations Activity Limitations: resume your previous activity . Current Hospital Diet Patient's current hospital diet: AHA Diet (Heart Healthy) Discharge Diet Recommended Diet: Regular Diet (caffiene free diet) Pending Studies Studies pending at discharge: no Laboratory Results Hemoglobin A1c Test 06/05/17 11:59 Range/Units Estimated Average Glucose 123 mg/dl Hemoglobin A1c 5.9 H 4.5-5.6 % Lipid Panel Test 06/05/17 11:59 Range/Units Triglycerides Level 140 0-150 mg/dl Cholesterol Level 227 H 0-200 mg/dl HDL Cholesterol 59 mg/dl Cholesterol/HDL Ratio 3.8 LDL Cholesterol, Calculated 140 mg/dl Medical Emergencies . Who to Call and When: Medical Emergencies: If at any time you feel your situation is an emergency, please call 911 immediately. . Non-Emergent Contact Non-Emergency issues call your: Primary Care Provider Call Non-Emergent contact if: temperature is above 101, your pain is unusual for you . . "Provider Documentation" section prepared by Mateus Cates. . VTE Core Measure Inpt VTE Proph given/why not?: Treatment not indicated
[2017-08-22 12:12] VITALS: BP 146/84; PULSE 66; TEMP 36.7; O2SAT 95
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
--- NOTE | 2017-08-22 13:56 | Discharge Summary ---
Discharge Summary Date of Service Aug 22, 2017. Discharge Summary Admission Date: Aug 21, 2017 at 18:55 Discharge Date: Aug 22, 2017 Discharge Disposition: Home Principal Diagnosis: palpitations Consultations: Dr Alfaro did see, ECHO, ecg, telemetry and labs were reviewed and could not corroborate a cardiac link to subjective feelings of palpitations. Medication Reconciliation Continued Medications: Ascorbic Acid (Vitamin C) 500 Mg Tab 500 MG PO TID Calcium Carbonate-Vitamin D (Calcium + D) 1 Tab Tab 1 TAB PO BID Hydrochlorothiazide (Hydrochlorothiazide) 12.5 Mg Tab 12.5 MG PO DAILY Magnesium Oxide (Mg Supplement (Magnesium) 400 Mg Cap 400 MG PO DAILY Potassium Chloride (Potassium Chloride Er) 10 Meq Tab 10 MEQ PO BID Ranitidine (Zantac) 300 Mg Tab 300 MG PO BID Spironolactone (Aldactone) 25 Mg Tab 25 MG PO DAILY Sucralfate (Carafate) 1 Gm Tab 1 GM PO ACHS, TAB Discontinued Medications: Flaxseed (Linseed) (Flax Seed Oil) 1 Cap Cap 1 TAB PO DAILY Milk Thistle (Silybum Marianum (Milk Thistle) Unknown Strength Cap 1 CAP PO DAILY Discharge Exam Review of Systems: Constitutional: No fever, No chills Respiratory: No cough, No sputum, No shortness of breath, No dyspnea on exertion, No dyspnea at rest Cardiovascular: + palpitations, No chest pain, No orthopnea Abdomen: No pain, No nausea, No vomiting Physical Exam: General Appearance: WD/WN, + mild distress (anxiety) Eyes: normal inspection, sclerae normal Neurologic/Psychiatric: alert, oriented x 3 Skin: normal color, warm/dry Hospital Course 62 F observed for palpitations, cardiac eval ruled out physiologic causes, did offer outpt stress if PCP desired I spent 35 minutes at the beside discussing the patients concerns in the presence of the nurse, she had all questions answered and is agreeable with a referral from pcp to consider phycological counselling for stress and anxiety Total Time Spent: Greater than 30 minutes This includes examination of the patient, discharge planning, medication reconciliation, and communication with other providers. Discharge Instructions Please refer to the electronic Patient Visit Report (Discharge Instructions) for additional information.
--- NOTE | 2017-08-22 14:19 | EMERGENCY ROOM VISIT NOTE ---
History Report prepared by Eric: Fiona Whitt Under the Supervision of: Dr. Mateus Edwards M.D. First contact with patient: 16:11 Stated Complaint: CARDIAC SYMPTOMS History of Present Illness The patient is a 62 year old female who presents to the Emergency Room with complaints of persistent cardiac discomfort that began today. The patient states a history of PVCs, noting she has been experiencing more frequently. She notes palpitations, dizziness, sweating, light headedness,and shortness of breath. She denies any loss of consciousness. The patient states she has chest pain with exertion, noting it is waxing and waning. The last episode was this morning. The patient notes that her blood pressure kavita to 103/98 today, noting she is treated for hypertension. She notes that she is treated for a history of reflux. The patient states she has low potassium levels. The patient denies a history of heart disease or having blood clots in her body. She notes she used to be a smoker, but no longer smokes. Source of History: patient Onset: today Position: other (global) Quality: other (cardiac discomfort) Timing: other (persistent) Associated Symptoms: + diaphoresis, + chest pain (with exertion), + SOB, No LOC Review of Systems See HPI for pertinent positives & negatives. A total of 10 systems reviewed and were otherwise negative. Past Medical & Surgical Medical Problems: (1) Anxiety (2) Chest pain (3) Esophageal Reflux (4) Esophageal Stricture (5) Foreign Body Esophagus (6) Heart palpitations (7) Hypertension Nos (8) Panic disorder (9) Urin Tract Infection Nos (10) Vasovagal attack Family History Patient reports no known family medical history. Social History Smoking Status: Former Smoker Alcohol Use: none Drug Use: none Marital Status: Occupation Status: employed Current/Historical Medications Scheduled Ascorbic Acid (Vitamin C), 500 MG PO TID Calcium Carbonate-Vitamin D (Calcium + D), 1 TAB PO BID Hydrochlorothiazide (Hydrochlorothiazide), 12.5 MG PO DAILY Magnesium Oxide (Mg Supplement (Magnesium), 400 MG PO DAILY Potassium Chloride (Potassium Chloride Er), 10 MEQ PO BID Ranitidine (Zantac), 300 MG PO BID Spironolactone (Aldactone), 25 MG PO DAILY Sucralfate (Carafate), 1 GM PO ACHS Allergies Coded Allergies: Sulfa Antibiotics (Verified Allergy, Unknown, MULTIPLE STOMACH PROBLEMS, MOUTH LESIONS, 08/21/17) Lisinopril (Verified Adverse Reaction, Severe, COUGH, 08/21/17) Physical Exam Vital Signs Date Time Temp Pulse Resp B/P (MAP) Pulse Ox O2 Delivery O2 Flow Rate FiO2 08/21/17 18:41 72 25 97 08/21/17 18:26 74 15 96 08/21/17 18:11 71 11 96 08/21/17 18:09 175/82 08/21/17 18:09 70 18 175/82 97 Room Air 08/21/17 17:56 77 19 08/21/17 17:51 78 21 08/21/17 16:22 97 Room Air 08/21/17 16:21 70 19 97 08/21/17 16:20 Room Air 08/21/17 16:16 73 18 167/71 97 Room Air 08/21/17 16:16 73 08/21/17 16:14 97 Room Air 08/21/17 16:13 167/71 Physical Exam Constitutional: Vital signs reviewed. Eyes: Pupils are equal round reactive to light. Conjunctiva are noninjected. ENT: Pharynx is clear without erythema or exudate. Mucous membranes are moist. Neck supple without meningeal signs. Respiratory: Clear to auscultation bilaterally. Breath sounds are equal bilaterally. Cardiovascular: Regular rate and rhythm. No rubs or gallops. GI: Soft, nondistended and nontender. Bowel sounds are present. Musculoskeletal: No peripheral edema. No lower extremity tenderness. Integumentary: No cyanosis. Neurological: The patient is awake and alert. No focal deficits. Psychiatric: Anxious. Medical Decision & Procedures Laboratory Results Test 08/21/17 16:47 Immature Granulocyte % (Auto) 0.2 % White Blood Count 8.20 K/uL (4.8-10.8) Red Blood Count 4.96 M/uL (4.2-5.4) Hemoglobin 14.4 g/dL (12.0-16.0) Hematocrit 43.0 % (37-47) Mean Corpuscular Volume 86.7 fL (80-100) Mean Corpuscular Hemoglobin 29.0 pg (25-34) Mean Corpuscular Hemoglobin Concent 33.5 g/dl (32-36) Platelet Count 212 K/uL (130-400) Mean Platelet Volume 10.7 fL (7.4-10.4) Neutrophils (%) (Auto) 64.4 % Lymphocytes (%) (Auto) 23.3 % Monocytes (%) (Auto) 7.9 % Eosinophils (%) (Auto) 3.7 % Basophils (%) (Auto) 0.5 % Neutrophils # (Auto) 5.28 K/uL (1.4-6.5) Lymphocytes # (Auto) 1.91 K/uL (1.2-3.4) Monocytes # (Auto) 0.65 K/uL (0.11-0.59) Eosinophils # (Auto) 0.30 K/uL (0-0.5) Basophils # (Auto) 0.04 K/uL (0-0.2) Immature Granulocyte # (Auto) 0.02 K/uL (0.00-0.02) Prothrombin Time 10.5 SECONDS (9.0-12.0) Prothromb Time International Ratio 1.0 (0.9-1.1) Activated Partial Thromboplast Time 31.0 SECONDS (21.0-31.0) Partial Thromboplastin Ratio 1.2 Magnesium Level 2.0 mg/dl (1.8-2.4) Medications Administered Medications (Trade) Dose Ordered Sig/Haja Route Start Time Stop Time Status Last Admin Dose Admin Aspirin (Aspirin Chew) 324 mg NOW STAT PO 08/21/17 16:20 08/21/17 16:21 DC 08/21/17 16:36 324 MG ECG Indication: chest pain, palpitations Rate (beats per minute): 70 Rhythm: normal sinus Findings: no acute ischemic change, no ectopy, other (low voltage QRS) Medical Decision The patient is a 62-year-old female presents with palpitations and chest discomfort. Differential diagnosis includes acute coronary syndrome, DC, PVCs, dysrhythmia, electrolyte abnormality, anxiety. I did perform a limited focused review of portions of the patient's old chart on the electronic medical record. The patient had a normal Holter monitor June 18. I did evaluate the patient as noted above. The patient is presenting with exertional chest pain as well as palpitations. IV access was established. The patient was placed on a continuous school lunch monitor. He does have occasional PVCs on the monitor. I did order and personally review the patient's 12-lead EKG and chest x-ray as described above. I did order and review the patient's blood work as noted in the electronic medical record. Troponin is negative. I did reassess patient. Her PVCs seemed to slow down. They are not as frequent. She does not have any chest pain currently. I did recommend hospitalization for repeat cardiac enzymes and further evaluation. I did discuss the case with the hospitalist and special education case manager. Medication Reconcilliation Current Medication List: was personally reviewed by me Blood Pressure Screening Patient's blood pressure: Elevated blood pressure Blood pressure disposition: Referred to PCP Impression Primary Impression: Exertional chest pain Additional Impression: PVCs (premature ventricular contractions) Scribe Attestation The scribe's documentation has been prepared under my direct and personally reviewed by me in its entirety. I confirm that the note above accurately reflects all work, treatment, procedures, and medical decision making performed by me. Departure Information Dispostion Being Evaluated By Hospitalist Referrals Linus Orona M.D. (PCP) Problem Qualifiers
== END 2017-08-22 13:10 | disposition home or self-care (01) ==
LOC: EDBD 16:06 → C.EDB 16:10 → C.MED 18:55 → ENRESERV 19:18
PROVIDERS: ADMIT Family Medicine; ATTEND Internal Medicine
DX: I49.3 Ventricular premature depolarization (principal); I10 Essential (primary) hypertension; K21.9 Gastro-esophageal reflux disease without esophagitis; F41.9 Anxiety disorder, unspecified; Z87.891 Personal history of nicotine dependence; Z79.899 Other long term (current) drug therapy; I71.2 Thoracic aortic aneurysm, without rupture; R06.02 Shortness of breath

== ENCOUNTER → 2017-08-21 | Outpatient (CLI) | payer OTHER ==
[~2017-08-21] MED LIST changes: +HYDR12.55 PO; +MAGN1CAP2 PO; +POTA-74 PO; +SPIR25TA89 PO
--- NOTE | 2017-08-21 16:10 | ECHOCARDIOGRAM REPORT ---
*NOTICE TO RECEIVING [employer] This information is strictly Confidential and protected under [place] law. [place] law prohibits you from making any further disclosure of this information unless further disclosure is expressly permitted by the written consent of the person to whom it pertains or is authorized by law. A general authorization for the release of medical or other information is not sufficient for this purpose. Hospital accepts no responsibility if the information is made available to any other person, INCLUDING THE PATIENT. Interpretation Summary * Name: WILMAN DODD Study Date: 08/21/2017 12:58 PM BP: 145/76 mmHg * Patient Location: [facility] HR: 66 * : 1955 (M/d/yyyy) Gender: Female Height: 66 in * Age: 62 yrs Ethnicity: [place] Weight: 239 lb * Ordering Physician: Linus Orona * Referring Physician: Linus Orona. * Performed By: Nette Umana RCS * * Reason For Study: DILATION ASCENDING AORTA ON CT * BSA: 2.2 m2 * -- Conclusions -- * Left ventricular systolic function is normal. * No regional wall motion abnormalities noted. * Ejection Fraction = 60-65%. * There is mild concentric left ventricular hypertrophy. * There is mild tricuspid regurgitation. Procedure Details * A complete two-dimensional transthoracic echocardiogram was performed (2D, M-mode, Doppler and color flow Doppler). Left Ventricle * The left ventricle is normal in size. * There is mild concentric left ventricular hypertrophy. * Left ventricular systolic function is normal. * Ejection Fraction = 60-65%. * No regional wall motion abnormalities noted. Right Ventricle * The right ventricle is grossly normal size. * The right ventricular systolic function is normal as assessed by tricuspid annular plane systolic excursion (TAPSE) (normal >1.5 cm). Atria * The left atrium is mildly dilated. * Borderline right atrial enlargement. * There is no evidence of atrial septal defect, but resolution does not allow assessment for a patent foramen ovale. Mitral Valve * The mitral valve is grossly normal. * There is no mitral valve stenosis. * Significant mitral regurgitation is absent. Tricuspid Valve * The tricuspid valve is not well visualized, but is grossly normal. * There is no tricuspid stenosis. * There is mild tricuspid regurgitation. Aortic Valve * The aortic valve is not well visualized. * The aortic valve opens well. * No hemodynamically significant valvular aortic stenosis. * There is no significant aortic regurgitation. Pulmonic Valve * The pulmonary valve is not well seen, but the Doppler examination is normal without significant regurgitation or stenosis. Great Vessels * The aortic root is normal size. * The pulmonary is not well visualized. Pericardium/Pleural * The pericardium appears normal. MMode 2D Measurements and Calculations IVSd 1.3 cm IVSs 1.2 cm LVIDd 3.6 cm LVIDs 2.7 cm LVPWd 1.4 cm LVPWs 1.5 cm IVS/LVPW 0.96 FS 24.3 % EDV(Teich) 54.0 ml ESV(Teich) 27.4 ml EF(Teich) 49.3 % EDV(cubed) 46.2 ml ESV(cubed) 20.0 ml EF(cubed) 56.7 % % IVS thick -12.56 % % LVPW thick 6.2 % LV mass(C)d 173.9 grams LV mass(C)dI 80.6 grams/m\S\2 LV mass(C)s 113.6 grams LV mass(C)sI 52.6 grams/m\S\2 SV(Teich) 26.6 ml SI(Teich) 12.3 ml/m\S\2 SV(cubed) 26.2 ml SI(cubed) 12.1 ml/m\S\2 Ao root diam 2.6 cm Ao root area 5.4 cm\S\2 ACS 1.6 cm LA dimension 4.3 cm LA/Ao 1.6 LVOT diam 2.0 cm LVOT area 3.0 cm\S\2 EDV(sp4-el) 114.0 ml ESV(sp4-el) 43.0 ml EF(sp4-el) 62.3 % EDV(sp2-el) 106.0 ml ESV(sp2-el) 36.0 ml EF(sp2-el) 66.0 % SV(sp4-el) 71.0 ml SI(sp4-el) 32.9 ml/m\S\2 SV(sp2-el) 70.0 ml SI(sp2-el) 32.4 ml/m\S\2 Doppler Measurements and Calculations MV E max veena 86.8 cm/sec MV A max veena 94.4 cm/sec MV E/A 0.92 MV P1/2t max veena 114.3 cm/sec MV P1/2t 99.5 msec MVA(P1/2t) 2.2 cm\S\2 MV dec slope 336.5 cm/sec\S\2 MV dec time 0.24 sec Ao V2 max 220.9 cm/sec Ao max PG 19.5 mmHg Ao max PG (full) 6.5 mmHg SABINO(V,A) 2.5 cm\S\2 SABINO(V,D) 2.5 cm\S\2 LV V1 max PG 13.0 mmHg LV V1 max 180.1 cm/sec MR max veena 554.7 cm/sec MR max PG 123.1 mmHg PA V2 max 120.8 cm/sec PA max PG 5.8 mmHg TR max veena 214.8 cm/sec
== END | disposition home or self-care (01) ==
LOC: C.CPL 12:51
PROVIDERS: ATTEND Family Medicine
DX: I71.2 Thoracic aortic aneurysm, without rupture (principal)

== ENCOUNTER → 2017-10-13 | Outpatient (CLI) | payer OTHER ==
[~2017-10-13] MED LIST changes: -FLAX1CAP11 PO; +HYDR12.55 PO; +MAGN1CAP2 PO; -MILK140C PO; +POTA-74 PO; +SPIR25TA89 PO; -SPIR50TA PO
--- NOTE | 2017-10-16 16:47 | PULMONARY FUNCTION TEST ---
CLINICAL DATA: 62-year-old female with a height of 66 inches and a weight of [address] Orona for evaluation of shortness of breath. Spirometry pre- and post-bronchodilator, lung volumes, and DLCO were performed. FINDINGS: Pre-bronchodilator spirometry demonstrates very mild small airway obstruction. FVC is 97% of predicted. FEV1 was 91% of predicted. [id number] was 65% of predicted. There was very slight improvement after inhaled bronchodilator. FVC improved 7% to 105% of predicted. FEV1 improved 6% to 96% of predicted. [id number] improved 3% to 67% of predicted. Lung volumes demonstrated a reduction in expiratory reserve volume due to obesity. DLCO is normal at 88% of predicted. IMPRESSION: Very mild obstructive small airways disease with minimal change after inhaled bronchodilator. Reduction in expiratory reserve volume due to obesity. MTDD
== END | disposition home or self-care (01) ==
LOC: C.RC 13:23
PROVIDERS: ATTEND Family Medicine
DX: R06.02 Shortness of breath (principal); N39.0 Urinary tract infection, site not specified

== ENCOUNTER → 2017-12-25 | Outpatient (CLI) | payer OTHER ==
--- NOTE | 2017-12-25 10:53 | DIAGNOSTIC IMAGING REPORT ---
BILIARY ULTRASOUND CLINICAL HISTORY: Right upper quadrant abdominal pain COMPARISON STUDY: December 2016 FINDINGS: The pancreas appears normal as visualized. The gallbladder appears sonographically normal. There is no ductal dilatation. The common bile duct measures 4 mm. The liver is of slightly increased echogenicity. There are several hepatic cysts. The largest is located within the left lobe measuring 29 mm in greatest dimension. The cyst is septated. There is no right-sided hydronephrosis. IMPRESSION: 1. No change from the preceding study 2. Hepatic cysts which remain similar in appearance 3. Ultrasonographically normal gallbladder. No evidence of ductal dilatation. 4. Increased hepatic echogenicity, a finding likely secondary to hepatic steatosis Electronically signed by: Mak Fischer M.D. 12/25/2017 10:52 AM Dictated Date/Time: 12/25/2017 10:50 AM
== END ==
LOC: C.ULTR 08:37
PROVIDERS: ATTEND Family Medicine
DX: R10.11 Right upper quadrant pain (principal)

== ENCOUNTER → 2018-04-18 | Outpatient (CLI) | payer OTHER ==
[~2018-04-18] MED LIST changes: +ALBU18002 INH; +CHOL2000 PO; +INHALER INH; +KFLHP PO; +LECITHIN PO; +MAGN1250 PO; +NXM/40 PO; +RANI150T85 PO; +SPIR25TA5 PO; -SPIR25TA89 PO
[2018-04-18 15:49] LABS: ALBUMIN 3.5 gm/dl (3.4-5.0); ALKALINE PHOSPHATASE 103 U/L (45-117); ALT/SGPT 25 U/L (12-78); AST/SGOT 16 U/L (15-37); BLOOD UREA NITROGEN 13 mg/dl (7-18); CALCIUM 9.1 mg/dl (8.5-10.1); CARBON DIOXIDE 25 mmol/L (21-32); CREATININE 1.02 mg/dl (0.60-1.20); GLUCOSE 105 mg/dl (70-99); POTASSIUM 3.9 mmol/L (3.5-5.1); SODIUM 137 mmol/L (136-145); TOTAL PROTEIN 8.6 gm/dl (6.4-8.2)
== END | disposition home or self-care (01) ==
LOC: C.LAB 13:43
PROVIDERS: ATTEND Family Medicine
DX: E87.6 Hypokalemia (principal); N39.0 Urinary tract infection, site not specified

== ENCOUNTER 2018-04-19 13:57 | Emergency (ER) | payer OTHER ==
[~2018-04-19] VITALS: Ht 170.2 cm; Wt 114.7 kg
[~2018-04-19 13:57] MED LIST changes: -ALBU18002 INH; -KFLHP PO; -MAGN1250 PO; -NXM/40 PO; -RANI150T85 PO
[2018-04-19 14:03] VITALS: BP 183/95; TEMP 37; Ht 170.2 cm; Wt 114.7 kg
[2018-04-19] MEDS ORDERED: CEPHALEXIN MONOHYDRATE 250 MG CAP PO ONE ×2 (15:30)
[2018-04-19 15:37] VITALS: O2SAT 99
[2018-04-19 15:53] LABS: BASO % 0.5 %; BASO ABS # 0.04 K/uL (0-0.2); EOS % 2.7 %; EOS ABS # 0.21 K/uL (0-0.5); HEMATOCRIT 41.9 % (37-47); HEMOGLOBIN 13.6 g/dL (12.0-16.0); IG# 0.02 K/uL (0.00-0.02); LYMPH ABS # 1.49 K/uL (1.2-3.4); MEAN CELL VOLUME 87.5 fL (80-100); MEAN CORPUSCULAR HEMOGLOBIN 28.4 pg (25-34); MEAN CORPUSCULAR HGB CONC 32.5 g/dl (32-36); MEAN PLATELET VOLUME 10.4 fL (7.4-10.4); MONO % 5.7 %; MONO ABS # 0.45 K/uL (0.11-0.59); NEUT % 71.8 %; NEUT ABS # 5.62 K/uL (1.4-6.5); PLATELET COUNT 245 K/uL (130-400); RED CELL DISTRIBUTION WIDTH SD 44.9 fL (36.4-46.3); WHITE BLOOD COUNT 7.83 K/uL (4.8-10.8)
[2018-04-19] MEDS ORDERED: NXM/40 PO (16:14)
[2018-04-19] MEDS ORDERED: RANI150T85 PO (16:16)
[2018-04-19] MEDS ORDERED: MAGN1250 PO (16:20)
[2018-04-19] MEDS ORDERED: ALBU18002 INH (16:23)
[2018-04-19 16:28] LABS: BLOOD UREA NITROGEN 12 mg/dl (7-18); CREATININE 0.91 mg/dl (0.60-1.20); GLUCOSE 91 mg/dl (70-99)
[2018-04-19 16:29] LABS: ALBUMIN 3.4 gm/dl (3.4-5.0); ALKALINE PHOSPHATASE 98 U/L (45-117); ALT/SGPT 24 U/L (12-78); AST/SGOT 15 U/L (15-37); CALCIUM 9.2 mg/dl (8.5-10.1); CARBON DIOXIDE 27 mmol/L (21-32); LIPASE 186 U/L (73-393); POTASSIUM 3.9 mmol/L (3.5-5.1); SODIUM 137 mmol/L (136-145); TOTAL PROTEIN 8.3 gm/dl (6.4-8.2)
[2018-04-19] MEDS ORDERED: KFLHP PO (16:45)
[2018-04-19 16:51] VITALS: PULSE 69; O2SAT 98
--- NOTE | 2018-04-19 21:30 | EMERGENCY ROOM VISIT NOTE ---
History Report prepared by Eric: Christina Tilley Under the Supervision of: Dr. George Moanco M.D. First contact with patient: 15:03 Chief Complaint: SYNCOPE (NEAR SYNCOPE) Stated Complaint: FAINTING,RAPID HEART RATE,ELEVATED BP Nursing Triage Summary: Pt reports was driving to PCP, felt like she was going to faint. "I felt my heart rate go up and I felt that fainting sensation. I felt like my bowels were active. I have been struggling with this for 2 years". pt was referred here by PCP. pt had labs yesterday. Hs bladder infection currently. denies pain History of Present Illness The patient is a 62 year old female who presents to the Emergency Room with complaints of a near syncopal episode that occurred around 1300 this afternoon. She states she was driving to her doctors office when she started to feel "a wave of loopiness" and her heart rate increased. She was on the phone with her brother and tried to stay on the phone with him while she maneuvered into a parking lot, where she was able to stop her vehicle. While in the car, she was able to rouse herself. She states her appointment with Dr. Orona today was for a recheck of similar episodes she has experienced for the past 2 years. She states they seem to be brought on by "active bowels" and reflux, for which she takes Nexium. Her last BM was this morning. The patient states she was recently diagnosed with a UTI after having lab work done yesterday. She denies any recent dysuria and states UTI's have never made her experience similar symptoms in the past. She also denies any recent chest pain. Source of History: patient Onset: 1300 today Position: other (global) Timing: resolved Associated Symptoms: No chest pain, No urinary symptoms Review of Systems See HPI for pertinent positives and negatives. A total of ten systems were reviewed and were otherwise negative. Past Medical & Surgical Medical Problems: (1) Anxiety (2) Chest pain (3) Esophageal Reflux (4) Esophageal Stricture (5) Foreign Body Esophagus (6) Heart palpitations (7) Hypertension Nos (8) Panic disorder (9) Urin Tract Infection Nos (10) Vasovagal attack Family History Patient reports no known family medical history. Social History Smoking Status: Former Smoker Alcohol Use: none Drug Use: none Marital Status: single Housing Status: lives alone Occupation Status: employed Current/Historical Medications Scheduled Ascorbic Acid (Vitamin C), 500 MG PO DAILY/PRN Cephalexin Monohydrate (Cephalexin), 1 CAP PO TID Cholecalciferol (Vitamin D3), 2,000 UNITS PO QPM Esomeprazole Magnesium (Nexium), 40 MG PO DAILY Hydrochlorothiazide (Hydrochlorothiazide), 12.5 MG PO Q2D Magnesium Malate (Magnesium Malate), Unknown Dose PO DAILY Potassium Chloride (Potassium Chloride Er), 10 MEQ PO BID Ranitidine (Zantac), 150 MG PO BID Sucralfate (Carafate), 1 GM PO ACHS Scheduled PRN Albuterol Sulfate (Proair Respiclick), 2 PUFFS INH Q4H PRN for SOB/Wheezing [Lecithin], 1 TAB PO BID PRN for RN Allergies Coded Allergies: Alcohol (Verified Allergy, Unknown, THROAT SWELLS, 02/25/18) Erythromycin (Verified Allergy, Unknown, A CHILD LARGE BROWN SPOTS ON ARMS, 02/25/18) Food Additives (Verified Allergy, Unknown, ONIONS-SEVERE GI UPSTE, 02/25/18 ) Loracarbef (Verified Allergy, Unknown, HALLUCINATIONS, 02/25/18) MANY ANTIBIOTICS CAUSES MENTAL DISORIENTATION PER PT Sulfa Antibiotics (Verified Allergy, Unknown, MULTIPLE STOMACH PROBLEMS, MOUTH LESIONS/SERUM DISEASE, 02/25/18) Unclassified Drugs (Verified Allergy, Unknown, PICKLING SPICES THROAT CLOSES-SOB, 02/25/18) Lisinopril (Verified Adverse Reaction, Severe, COUGH, 02/17/18) Physical Exam Vital Signs Date Time Temp Pulse Resp B/P (MAP) Pulse Ox O2 Delivery O2 Flow Rate FiO2 04/19/18 16:51 69 98 04/19/18 15:52 65 04/19/18 15:37 99 Room Air 04/19/18 14:06 95 04/19/18 14:03 37.0 77 18 183/95 95 Room Air Physical Exam GENERAL: Awake, alert, well-appearing, in no distress HENT: Normocephalic, atraumatic. Oropharynx unremarkable. EYES: Normal conjunctiva. Sclera non-icteric. NECK: Supple. No nuchal rigidity. RESPIRATORY: Clear to auscultation. No wheezes. Normal respiratory effort. CARDIAC: Normal rate. Normal rhythm. Extremities warm and well perfused. GI: Soft, obese, non-distended. Very mild LUQ tenderness to palpation. No rebound or guarding. RECTAL: Deferred. MUSCULOSKELETAL: Atraumatic. Chest examination reveals no tenderness. LOWER EXTREMITIES: Calves are equal size bilaterally and non-tender. 1+ bilateral LE swelling. NEURO: Normal sensorium. No sensory or motor deficits noted. No facial droop. SKIN: Warm and dry. No rash or jaundice noted. Medical Decision & Procedures Laboratory Results 04/19/18 15:35 Red Blood Count 4.79, Mean Corpuscular Volume 87.5, Mean Corpuscular Hemoglobin 28.4, Mean Corpuscular Hemoglobin Concent 32.5, Mean Platelet Volume 10.4, Neutrophils (%) (Auto) 71.8, Lymphocytes (%) (Auto) 19.0, Monocytes (%) (Auto) 5.7, Eosinophils (%) (Auto) 2.7, Basophils (%) (Auto) 0.5, Neutrophils # (Auto) 5.62, Lymphocytes # (Auto) 1.49, Monocytes # (Auto) 0.45, Eosinophils # (Auto) 0.21, Basophils # (Auto) 0.04 04/19/18 15:35 Test 04/19/18 15:35 White Blood Count 7.83 K/uL (4.8-10.8) Red Blood Count 4.79 M/uL (4.2-5.4) Hemoglobin 13.6 g/dL (12.0-16.0) Hematocrit 41.9 % (37-47) Mean Corpuscular Volume 87.5 fL (80-100) Mean Corpuscular Hemoglobin 28.4 pg (25-34) Mean Corpuscular Hemoglobin Concent 32.5 g/dl (32-36) Platelet Count 245 K/uL (130-400) Mean Platelet Volume 10.4 fL (7.4-10.4) Neutrophils (%) (Auto) 71.8 % Lymphocytes (%) (Auto) 19.0 % Monocytes (%) (Auto) 5.7 % Eosinophils (%) (Auto) 2.7 % Basophils (%) (Auto) 0.5 % Neutrophils # (Auto) 5.62 K/uL (1.4-6.5) Lymphocytes # (Auto) 1.49 K/uL (1.2-3.4) Monocytes # (Auto) 0.45 K/uL (0.11-0.59) Eosinophils # (Auto) 0.21 K/uL (0-0.5) Basophils # (Auto) 0.04 K/uL (0-0.2) RDW Standard Deviation 44.9 fL (36.4-46.3) RDW Coefficient of Variation 14.0 % (11.5-14.5) Immature Granulocyte % (Auto) 0.3 % Immature Granulocyte # (Auto) 0.02 K/uL (0.00-0.02) Anion Gap 7.0 mmol/L (3-11) Est Creatinine Clear Calc Drug Dose 81.7 ml/min Estimated GFR () 77.3 Estimated GFR (Non- 66.7 BUN/Creatinine Ratio 12.7 (10-20) Calcium Level 9.2 mg/dl (8.5-10.1) Magnesium Level 2.0 mg/dl (1.8-2.4) Total Bilirubin 0.3 mg/dl (0.2-1) Direct Bilirubin 0.1 mg/dl (0-0.2) Aspartate Amino Transf (AST/SGOT) 15 U/L (15-37) Alanine Aminotransferase (ALT/SGPT) 24 U/L (12-78) Alkaline Phosphatase 98 U/L (45-117) Troponin I < 0.015 ng/ml (0-0.045) Total Protein 8.3 gm/dl (6.4-8.2) Albumin 3.4 gm/dl (3.4-5.0) Lipase 186 U/L (73-393) Thyroid Stimulating Hormone (TSH) 0.934 uIu/ml (0.300-4.500) Laboratory results reviewed by me Medications Administered Medications (Trade) Dose Ordered Sig/Haja Route Start Time Stop Time Status Last Admin Dose Admin Cephalexin Monohydrate (Keflex Cap) 250 mg NOW ONCE PO 04/19/18 15:30 04/19/18 15:31 DC 04/19/18 15:37 250 MG ECG Per My Interpretation Indication: syncope (near syncope) Rate (beats per minute): 66 Rhythm: normal sinus Findings: no ectopy, other (No ST elevation, no ST depression, no T-wave inversion, normal intervals) Change: no significant change (No change from Aug 22, 2017) ED Course 1505: The patient was evaluated in room C3. A complete history and physical exam was performed. 1530: Keflex 750 mg PO. 1634: I reevaluated the patient. She is feeling much better and is ready to go home. I discussed her results and discharge instructions and she verbalized complete understanding and agreement. Medical Decision Triage Nursing notes reviewed. The patient's presentation and history were concerning for syncope. Differential diagnosis: Etiologies such as vasovagal event, infection, hypoglycemia, electrolyte abnormalities, cardiac sources, intracerebral event, toxicologic, neurologic, as well as others were entertained. Near syncopal event. History of this over the past several years. Ongoing outpatient workup; no real previous findings reported. Did have some transient abdominal discomfort. Fairly benign abdomen now. States this is a normal episode or syncope. No chest pain. Doubt PE or dissection. Doubt ACS. EKG and troponin were completed with basic blood work. Patient does have UTI with urine culture growing from yesterday. Some symptoms she states for a while. This may be contributing. Will start on Keflex which has tolerated before; she is requesting 250 mg dosing. Labs were unremarkable. Feeling improved now. Recommend continued outpatient follow-up for her near syncopal episodes which she has been following with her regular doctor for. Stable for discharge. Medication Reconcilliation Current Medication List: was personally reviewed by me Blood Pressure Screening Patient's blood pressure: Elevated blood pressure Blood pressure disposition: Referred to PCP Impression Primary Impression: Near syncope Additional Impression: UTI (urinary tract infection) Scribe Attestation The scribe's documentation has been prepared under my direction and personally reviewed by me in its entirety. I confirm that the note above accurately reflects all work, treatment, procedures, and medical decision making performed by me. Departure Information Dispostion Home / Self-Care Prescriptions Cephalexin Monohydrate (Cephalexin) 250 Mg Cap 1 CAP PO TID for 10 Days, #30 CAP 0 Refills Prov: George Monaco M.D. 04/19/18 Referrals Linus Orona M.D. (PCP) Patient Instructions My [facility] [place], UTI Additional Instructions Please continue to maintain good hydration and good outpatient follow-up with your regular doctor for your near syncope. If at any time you have any concerns please feel free to return here for reevaluation. Utilize the prescribed antibiotic to help with your urinary tract infection. Problem Qualifiers Additional Impression: UTI (urinary tract infection) Urinary tract infection type: acute cystitis Hematuria presence: with hematuria Qualified Codes: N30.01 - Acute cystitis with hematuria
== END 2018-04-19 16:50 | disposition home or self-care (01) ==
LOC: C.EDB 13:58 → C.EDC 16:50
DX: R55 Syncope and collapse (principal); N30.01 Acute cystitis with hematuria; K21.9 Gastro-esophageal reflux disease without esophagitis; I10 Essential (primary) hypertension; Z91.018 Allergy to other foods; Z88.2 Allergy status to sulfonamides; Z88.8 Allergy status to other drugs, medicaments and biological substances; Z87.891 Personal history of nicotine dependence